=== PATIENT | female | born 1940 | race Caucasian/White ===

== ENCOUNTER → 2016-04-11 | Outpatient (CLI) | payer MEDICARE, OTHER ==
[~2016-04-11] MED LIST: AML5T PO; CALC500T87 PO; CYAN100023 PO; FOLI800T14 PO; METF-312 PO; POTACAP PO; PRE5T PO; [UNRECOGNIZED DRUG - CODE] PO
[2016-04-11 11:52] LABS: Basophils # (auto) 0.1 uL; Basophils % (auto) 0.9 % (0.0-2.0); Eosinophils # (auto) 0.2 uL; Eosinophils % (auto) 2.9 % (0.0-7.0); Lymphocytes # (auto) 2.6 uL; Lymphocytes % (auto) 46.2 % (10.0-50.0); Mean Corpuscular Hemoglobin 27.2 pg (28.0-32.0); Mean Corpuscular Hgb Conc. 32.4 g/dL (32.0-36.0); Mean Corpuscular Volume 83.9 fL (80.0-100.0); Mean Platelet Volume 9.3 fL (7.4-10.4); Monocytes # (auto) 0.5 uL; Monocytes % (auto) 8.9 % (0.0-12.0); Neutrophils # (auto) 2.3 uL; Neutrophils % (auto) 41.1 % (37.0-80.0); Platelet Count (auto) 306 10^3/uL (140-450); Red Cell Distribution Width 16.1 % (11.6-16.0); White Blood Cell 5.7 10^3/uL (4.4-10.8)
[2016-04-11 12:06] LABS: BUN/Creatinine Ratio 15.8; Bilirubin, Total 0.6 mg/dL (0.2-1.0); Calcium 9.4 mg/dL (8.5-10.1); Total Protein 7.6 g/dL (6.4-8.2)
== END | disposition home or self-care (01) ==
LOC: LAB 11:30
PROVIDERS: ATTEND Internal Medicine
DX: D46.9 Myelodysplastic syndrome, unspecified (principal)
CPT/HCPCS: 36415; 80053; 83615; 85025

== ENCOUNTER → 2016-05-19 | Outpatient (CLI) | payer MEDICARE, OTHER ==
[2016-05-19 10:30] LABS: Basophils # (auto) 0 uL; Basophils % (auto) 0.6 % (0.0-2.0); DEFINITIVE VIEW TRANSMISSION; Eosinophils # (auto) 0.2 uL; Eosinophils % (auto) 3.1 % (0.0-7.0); Hematocrit 30.8 % (36.0-46.0); Hemoglobin 9.6 g/dL (12.2-16.2); Lymphocytes # (auto) 2.4 uL; Lymphocytes % (auto) 36.1 % (10.0-50.0); Mean Corpuscular Hemoglobin 26.3 pg (28.0-32.0); Mean Corpuscular Hgb Conc. 31.3 g/dL (32.0-36.0); Mean Corpuscular Volume 84.1 fL (80.0-100.0); Mean Platelet Volume 9.6 fL (7.4-10.4); Monocytes # (auto) 0.6 uL; Monocytes % (auto) 9.3 % (0.0-12.0); Neutrophils # (auto) 3.4 uL; Neutrophils % (auto) 50.9 % (37.0-80.0); Platelet Count (auto) 396 10^3/uL (140-450); Red Cell Distribution Width 15.9 % (11.6-16.0); White Blood Cell 6.6 10^3/uL (4.4-10.8)
[2016-05-19 10:53] LABS: Albumin 3.3 g/dL (3.4-5.0); BUN/Creatinine Ratio 13.1; Bilirubin, Total 0.3 mg/dL (0.2-1.0); Calcium 8.7 mg/dL (8.5-10.1); Potassium 3.8 mmol/L (3.5-5.1)
== END | disposition home or self-care (01) ==
LOC: LAB 09:35
PROVIDERS: ATTEND Internal Medicine
DX: D46.9 Myelodysplastic syndrome, unspecified (principal)
CPT/HCPCS: 36415; 80053; 83615; 85025

== ENCOUNTER 2016-06-09 10:00 | Emergency (ER) | payer MEDICARE, OTHER ==
[~2016-06-09] VITALS: Ht 160 cm; Wt 101.2 kg
[2016-06-09 14:13] VITALS: BP 184/68
[2016-06-09] MEDS ORDERED: cloNIDine HCL 0.1 MG TAB PO ONE (15:30)
== END 2016-06-09 15:42 | disposition home or self-care (01) ==
LOC: ER 10:01
DX: I13.0 Hypertensive heart and chronic kidney disease with heart failure and stage 1 through stage 4 chronic kidney disease, or unspecified chronic kidney disease (principal); E11.22 Type 2 diabetes mellitus with diabetic chronic kidney disease; N18.9 Chronic kidney disease, unspecified; I50.9 Heart failure, unspecified; Z88.6 Allergy status to analgesic agent; Z88.0 Allergy status to penicillin; Z79.899 Other long term (current) drug therapy

== ENCOUNTER 2016-06-23 17:41 | Observation (INO) | payer MEDICARE, OTHER ==
[~2016-06-23] VITALS: Ht 157.5 cm; Wt 97.5 kg
[2016-06-23] MEDS ORDERED: ACETAMINOPHEN 500 MG TAB PO ONE ×2 (18:22→18:30)
[2016-06-23 19:47] LABS: Basophils # (auto) 0 uL; Basophils % (auto) 0.1 % (0.0-2.0); Eosinophils # (auto) 0.1 uL; Eosinophils % (auto) 0.6 % (0.0-7.0); Hematocrit 33.1 % (36.0-46.0); Lymphocytes # (auto) 0.4 uL; Lymphocytes % (auto) 4.7 % (10.0-50.0); Mean Corpuscular Hemoglobin 27.5 pg (28.0-32.0); Mean Corpuscular Hgb Conc. 33.3 g/dL (32.0-36.0); Mean Corpuscular Volume 82.5 fL (80.0-100.0); Mean Platelet Volume 9.9 fL (7.4-10.4); Monocytes # (auto) 1.3 uL; Monocytes % (auto) 13.4 % (0.0-12.0); Neutrophils # (auto) 7.6 uL; Neutrophils % (auto) 81.2 % (37.0-80.0); Platelet Count (auto) 266 10^3/uL (140-450); Red Cell Distribution Width 16.6 % (11.6-16.0); White Blood Cell 9.4 10^3/uL (4.4-10.8)
[2016-06-23 20:05] LABS: Albumin 3.7 g/dL (3.4-5.0); Calcium 8.9 mg/dL (8.5-10.1); Lactic Acid w/Reflex 7.3 mmol/L (0.4-2.0); Potassium 3.4 mmol/L (3.5-5.1)
[2016-06-23 20:23] LABS: Bilirubin, Total 0.4 mg/dL (0.2-1.0); Total Protein 7.5 g/dL (6.4-8.2)
[2016-06-23 20:32] LABS: REFLEX LACTIC ACID YES OR NO YES
[2016-06-23 22:09] LABS: Lactic Acid w/Reflex 3.7 mmol/L (0.4-2.0)
[2016-06-23 22:11] LABS: REFLEX LACTIC ACID YES OR NO NO
[2016-06-24 00:04] LABS: INR 1.03 (0.9-1.15); Prothrombin Time 10.6 sec (9.37-12.3)
[2016-06-24] MEDS ORDERED: LEVOFLOXACIN 500 MG TAB PO ONE (01:30)
[2016-06-24] MEDS ORDERED: ACETAMINOPHEN 500 MG TAB PO ONE (04:00)
[2016-06-24 04:31] LABS: Urine Bilirubin Negative (Negative); Urine Blood Negative /uL (Negative); Urine Color Yellow (Yellow); Urine Glucose Normal (Normal); Urine Hyaline Cast FEW /lpf (0 - 2); Urine Ketone Negative (Negative); Urine Mucus FEW (None Seen); Urine Nitrite Negative (Negative); Urine RBC 2 /hpf (0 - 4); Urine Urobilinogen Normal (Negative); Urine pH 7.5 (5.0-8.0)
[2016-06-24 05:30] VITALS: BP 97/52
== END 2016-06-24 06:07 | disposition home or self-care (01) | DRG 694 ==
LOC: ER 17:42 → OVERFLOW 17:43 → UNDOADMOB 17:43 → OVERFLOW 23:45 → ER 06-24 05:57 → UNDODISOB 06-24 06:07 → ER 06-24 06:07
PROVIDERS: ADMIT Emergency Medicine; ATTEND Emergency Medicine
DX: N20.0 Calculus of kidney (principal); J98.11 Atelectasis; K80.20 Calculus of gallbladder without cholecystitis without obstruction; I11.0 Hypertensive heart disease with heart failure; I50.9 Heart failure, unspecified; E11.9 Type 2 diabetes mellitus without complications; Z87.442 Personal history of urinary calculi
CPT/HCPCS: 36415; 74176; 80053; 81001; 83605; 85025; 85610; 85730; 87040; 93005; 99285; G0378

== ENCOUNTER → 2016-06-23 | Outpatient (CLI) | payer MEDICARE, OTHER ==
[2016-06-23 10:16] LABS: Albumin 3.6 g/dL (3.4-5.0); BUN/Creatinine Ratio 16.7; Bilirubin, Total 0.4 mg/dL (0.2-1.0); Potassium 3.7 mmol/L (3.5-5.1); Total Protein 7.3 g/dL (6.4-8.2)
[2016-06-23 10:31] LABS: Basophils # (auto) 0.1 uL; Basophils % (auto) 2.3 % (0.0-2.0); Eosinophils # (auto) 0.1 uL; Eosinophils % (auto) 1.3 % (0.0-7.0); Hematocrit 32.5 % (36.0-46.0); Hemoglobin 10.7 g/dL (12.2-16.2); Lymphocytes # (auto) 2.3 uL; Lymphocytes % (auto) 43.6 % (10.0-50.0); Mean Corpuscular Hemoglobin 27.1 pg (28.0-32.0); Mean Corpuscular Volume 82.1 fL (80.0-100.0); Mean Platelet Volume 10.4 fL (7.4-10.4); Monocytes # (auto) 0.5 uL; Monocytes % (auto) 9.5 % (0.0-12.0); Neutrophils # (auto) 2.3 uL; Neutrophils % (auto) 43.3 % (37.0-80.0); Platelet Count (auto) 264 10^3/uL (140-450); Red Cell Distribution Width 16.7 % (11.6-16.0); White Blood Cell 5.2 10^3/uL (4.4-10.8)
== END | disposition home or self-care (01) ==
LOC: LAB 09:40
PROVIDERS: ATTEND Internal Medicine
DX: D46.9 Myelodysplastic syndrome, unspecified (principal)
CPT/HCPCS: 36415; 80053; 83615; 85025

== ENCOUNTER → 2016-06-30 | Outpatient (CLI) | payer MEDICARE, OTHER ==
[2016-06-30 10:04] LABS: Basophils # (auto) 0 uL; Basophils % (auto) 0.6 % (0.0-2.0); Eosinophils # (auto) 0.1 uL; Eosinophils % (auto) 2.1 % (0.0-7.0); Hematocrit 32.1 % (36.0-46.0); Hemoglobin 10.9 g/dL (12.2-16.2); Lymphocytes # (auto) 2.4 uL; Lymphocytes % (auto) 40.9 % (10.0-50.0); Mean Corpuscular Hemoglobin 27.4 pg (28.0-32.0); Mean Corpuscular Hgb Conc. 33.9 g/dL (32.0-36.0); Monocytes # (auto) 0.4 uL; Monocytes % (auto) 7.4 % (0.0-12.0); Neutrophils # (auto) 2.8 uL; Platelet Count (auto) 218 10^3/uL (140-450); Red Cell Distribution Width 16.9 % (11.6-16.0); SUSPECT VIEW TRANSMISSION; White Blood Cell 5.8 10^3/uL (4.4-10.8)
[2016-06-30 11:06] LABS: Platelet Estimate Adequate
[2016-06-30 11:07] LABS: RBC Morphology Normal
== END | disposition home or self-care (01) ==
LOC: LAB 09:22
PROVIDERS: ATTEND Internal Medicine
DX: D46.9 Myelodysplastic syndrome, unspecified (principal)
CPT/HCPCS: 36415; 85025

== ENCOUNTER → 2016-08-04 | Outpatient (CLI) | payer MEDICARE, OTHER ==
[2016-08-04 10:13] LABS: Basophils # (auto) 0.1 uL; Basophils % (auto) 1.8 % (0.0-2.0); DEFINITIVE VIEW TRANSMISSION; Eosinophils # (auto) 0.1 uL; Eosinophils % (auto) 1.5 % (0.0-7.0); Hemoglobin 10.5 g/dL (12.2-16.2); Lymphocytes # (auto) 2.2 uL; Lymphocytes % (auto) 48.8 % (10.0-50.0); Mean Corpuscular Volume 81.8 fL (80.0-100.0); Mean Platelet Volume 9.7 fL (7.4-10.4); Monocytes # (auto) 0.4 uL; Neutrophils # (auto) 1.8 uL; Neutrophils % (auto) 38.9 % (37.0-80.0); Platelet Count (auto) 322 10^3/uL (140-450); Red Cell Distribution Width 17.8 % (11.6-16.0); White Blood Cell 4.6 10^3/uL (4.4-10.8)
[2016-08-04 10:32] LABS: Albumin 3.4 g/dL (3.4-5.0); BUN/Creatinine Ratio 18.8; Bilirubin, Total 0.5 mg/dL (0.2-1.0); Calcium 8.6 mg/dL (8.5-10.1); Potassium 3.5 mmol/L (3.5-5.1); Total Protein 6.9 g/dL (6.4-8.2)
== END | disposition home or self-care (01) ==
LOC: LAB 09:41
PROVIDERS: ATTEND Internal Medicine
DX: D46.9 Myelodysplastic syndrome, unspecified (principal)
CPT/HCPCS: 36415; 80053; 83615; 85025

== ENCOUNTER → 2016-09-08 | Outpatient (CLI) | payer MEDICARE, OTHER ==
[~2016-09-08] MED LIST changes: -METF-312 PO; +METF-370 PO
[2016-09-08 10:17] LABS: Basophils # (auto) 0 uL; Basophils % (auto) 0.5 % (0.0-2.0); Eosinophils # (auto) 0.1 uL; Eosinophils % (auto) 1.1 % (0.0-7.0); Hematocrit 30.7 % (36.0-46.0); Hemoglobin 10.2 g/dL (12.2-16.2); Lymphocytes # (auto) 2.1 uL; Lymphocytes % (auto) 44.3 % (10.0-50.0); Mean Corpuscular Hgb Conc. 33.4 g/dL (32.0-36.0); Mean Corpuscular Volume 80.9 fL (80.0-100.0); Mean Platelet Volume 10.8 fL (7.4-10.4); Monocytes # (auto) 0.5 uL; Monocytes % (auto) 10.4 % (0.0-12.0); Neutrophils # (auto) 2.1 uL; Neutrophils % (auto) 43.7 % (37.0-80.0); Platelet Count (auto) 234 10^3/uL (140-450); Red Cell Distribution Width 17.3 % (11.6-16.0); White Blood Cell 4.7 10^3/uL (4.4-10.8)
[2016-09-08 10:20] LABS: Albumin 3.5 g/dL (3.4-5.0); BUN/Creatinine Ratio 21.2; Calcium 8.5 mg/dL (8.5-10.1); Potassium 3.7 mmol/L (3.5-5.1)
[2016-09-08 10:23] LABS: Bilirubin, Total 0.4 mg/dL (0.2-1.0); Total Protein 7.1 g/dL (6.4-8.2)
== END | disposition home or self-care (01) ==
LOC: LAB 09:43
PROVIDERS: ATTEND Internal Medicine
DX: D46.9 Myelodysplastic syndrome, unspecified (principal)
CPT/HCPCS: 36415; 80053; 83615; 85025

== ENCOUNTER → 2016-10-13 | Outpatient (CLI) | payer MEDICARE ==
[2016-10-13 10:23] LABS: Basophils # (auto) 0 uL; Basophils % (auto) 0.9 % (0.0-2.0); CONDITION Y; Eosinophils # (auto) 0.1 uL; Eosinophils % (auto) 1.8 % (0.0-7.0); Hematocrit 30.9 % (36.0-46.0); Hemoglobin 10.4 g/dL (12.2-16.2); Lymphocytes # (auto) 1.9 uL; Lymphocytes % (auto) 41.9 % (10.0-50.0); Mean Corpuscular Hemoglobin 27.6 pg (28.0-32.0); Mean Corpuscular Hgb Conc. 33.6 g/dL (32.0-36.0); Mean Corpuscular Volume 82.1 fL (80.0-100.0); Mean Platelet Volume 9.6 fL (7.4-10.4); Monocytes # (auto) 0.4 uL; Monocytes % (auto) 9.7 % (0.0-12.0); Neutrophils % (auto) 45.7 % (37.0-80.0); Platelet Count (auto) 206 10^3/uL (140-450); Red Cell Distribution Width 17.8 % (11.6-16.0); SUSPECT SEE PRINTOUT; White Blood Cell 4.5 10^3/uL (4.4-10.8)
[2016-10-13 11:04] LABS: Albumin 3.5 g/dL (3.4-5.0); BUN/Creatinine Ratio 19.3; Bilirubin, Total 0.4 mg/dL (0.2-1.0); Calcium 8.9 mg/dL (8.5-10.1); Potassium 3.8 mmol/L (3.5-5.1); Total Protein 6.8 g/dL (6.4-8.2)
== END | disposition home or self-care (01) ==
LOC: LAB 10:09
PROVIDERS: ATTEND Internal Medicine
DX: D46.9 Myelodysplastic syndrome, unspecified (principal)
CPT/HCPCS: 36415; 80053; 85025

== ENCOUNTER → 2016-11-17 | Outpatient (CLI) | payer MEDICARE, BC ==
[2016-11-17 10:11] LABS: Basophils # (auto) 0 uL; Basophils % (auto) 0.8 % (0.0-2.0); CONDITION Y; Eosinophils # (auto) 0.1 uL; Eosinophils % (auto) 2.1 % (0.0-7.0); Hematocrit 31.4 % (36.0-46.0); Hemoglobin 10.7 g/dL (12.2-16.2); Lymphocytes # (auto) 1.7 uL; Lymphocytes % (auto) 41.8 % (10.0-50.0); Mean Corpuscular Hgb Conc. 34.1 g/dL (32.0-36.0); Mean Corpuscular Volume 82.1 fL (80.0-100.0); Mean Platelet Volume 9.9 fL (7.4-10.4); Monocytes # (auto) 0.4 uL; Monocytes % (auto) 9.6 % (0.0-12.0); Neutrophils # (auto) 1.9 uL; Neutrophils % (auto) 45.7 % (37.0-80.0); Platelet Count (auto) 110 10^3/uL (140-450); Red Cell Distribution Width 17.8 % (11.6-16.0); SUSPECT SEE PRINTOUT; White Blood Cell 4.1 10^3/uL (4.4-10.8)
[2016-11-17 17:38] LABS: Potassium 3.8 mmol/L (3.5-5.1)
[2016-11-17 17:56] LABS: Albumin 3.7 g/dL (3.4-5.0); Bilirubin, Total 0.4 mg/dL (0.2-1.0); Calcium 8.8 mg/dL (8.5-10.1); Total Protein 7.2 g/dL (6.4-8.2)
== END | disposition home or self-care (01) ==
LOC: LAB 09:43
PROVIDERS: ATTEND Internal Medicine
DX: D46.9 Myelodysplastic syndrome, unspecified (principal); I11.0 Hypertensive heart disease with heart failure; I50.9 Heart failure, unspecified; E11.9 Type 2 diabetes mellitus without complications
CPT/HCPCS: 36415; 80053; 83615; 85025

== ENCOUNTER → 2016-12-09 | Outpatient (CLI) | payer MEDICARE, BC ==
[2016-12-09 13:39] LABS: Basophils # (auto) 0 uL; Basophils % (auto) 0.4 % (0.0-2.0); CONDITION Y; Eosinophils # (auto) 0 uL; Eosinophils % (auto) 0.3 % (0.0-7.0); Hemoglobin 11.3 g/dL (12.2-16.2); Lymphocytes # (auto) 1.2 uL; Lymphocytes % (auto) 20.7 % (10.0-50.0); Mean Corpuscular Hgb Conc. 33.3 g/dL (32.0-36.0); Mean Platelet Volume 10.5 fL (7.4-10.4); Monocytes # (auto) 0.4 uL; Monocytes % (auto) 6.9 % (0.0-12.0); Neutrophils # (auto) 4.3 uL; Neutrophils % (auto) 71.7 % (37.0-80.0); Platelet Count (auto) 66 10^3/uL (140-450)
[2016-12-09 14:01] LABS: Albumin 3.9 g/dL (3.4-5.0); BUN/Creatinine Ratio 18.3; Bilirubin, Total 0.5 mg/dL (0.2-1.0); Calcium 9.2 mg/dL (8.5-10.1); Potassium 4.2 mmol/L (3.5-5.1); Total Protein 7.8 g/dL (6.4-8.2)
== END ==
LOC: LAB 12:56
PROVIDERS: ATTEND Internal Medicine
DX: D46.9 Myelodysplastic syndrome, unspecified (principal); I13.0 Hypertensive heart and chronic kidney disease with heart failure and stage 1 through stage 4 chronic kidney disease, or unspecified chronic kidney disease; I15.9 Secondary hypertension, unspecified; N18.9 Chronic kidney disease, unspecified; E11.9 Type 2 diabetes mellitus without complications
CPT/HCPCS: 36415; 80053; 83615; 85025

== ENCOUNTER → 2016-12-15 | Outpatient (CLI) | payer MEDICARE, OTHER ==
[2016-12-15 09:36] LABS: Basophils # (auto) 0 uL; Basophils % (auto) 0.2 % (0.0-2.0); CONDITION Y; Eosinophils # (auto) 0 uL; Eosinophils % (auto) 0.3 % (0.0-7.0); Hemoglobin 11.2 g/dL (12.2-16.2); Lymphocytes # (auto) 1.7 uL; Lymphocytes % (auto) 19.7 % (10.0-50.0); Mean Corpuscular Hemoglobin 28.1 pg (28.0-32.0); Mean Corpuscular Hgb Conc. 33.9 g/dL (32.0-36.0); Mean Corpuscular Volume 82.9 fL (80.0-100.0); Mean Platelet Volume 10.8 fL (7.4-10.4); Monocytes # (auto) 0.3 uL; Monocytes % (auto) 3.9 % (0.0-12.0); Neutrophils # (auto) 6.4 uL; Neutrophils % (auto) 75.9 % (37.0-80.0); Platelet Count (auto) 225 10^3/uL (140-450); Red Cell Distribution Width 18.3 % (11.6-16.0); White Blood Cell 8.4 10^3/uL (4.4-10.8)
== END | disposition home or self-care (01) ==
LOC: LAB 09:24
PROVIDERS: ATTEND Internal Medicine
DX: D64.9 Anemia, unspecified (principal); I13.0 Hypertensive heart and chronic kidney disease with heart failure and stage 1 through stage 4 chronic kidney disease, or unspecified chronic kidney disease; I50.9 Heart failure, unspecified; N18.9 Chronic kidney disease, unspecified
CPT/HCPCS: 36415; 85025

== ENCOUNTER → 2016-12-18 | Outpatient (CLI) | payer MEDICARE, OTHER ==
[2016-12-18 09:32] LABS: Hematocrit 34.1 % (36.0-46.0); Hemoglobin 11.3 g/dL (12.2-16.2); Mean Corpuscular Hemoglobin 27.7 pg (28.0-32.0); Mean Corpuscular Hgb Conc. 33.1 g/dL (32.0-36.0); Mean Corpuscular Volume 83.9 fL (80.0-100.0); Mean Platelet Volume 9.9 fL (6.9-10.8); Platelet Count (auto) 199 10^3/uL (140-450); Red Cell Distribution Width 17.5 % (11.8-14.3); White Blood Cell 8.7 10^3/uL (4.4-10.8)
[2016-12-18 09:39] LABS: Metamyelocytes % 0; Myelocytes % 0; Promyelocytes % 0; Reactive Lymphocytes 0
[2016-12-18 10:04] LABS: Anisocytosis Slight; Burr Cells FEW; Ovalocytes FEW; Platelet Estimate Adequate; Tear Drop Cells FEW
== END | disposition home or self-care (01) ==
LOC: LAB 09:14
PROVIDERS: ATTEND Internal Medicine
DX: D46.9 Myelodysplastic syndrome, unspecified (principal); I13.0 Hypertensive heart and chronic kidney disease with heart failure and stage 1 through stage 4 chronic kidney disease, or unspecified chronic kidney disease; I50.9 Heart failure, unspecified; N18.9 Chronic kidney disease, unspecified; E11.9 Type 2 diabetes mellitus without complications
CPT/HCPCS: 36415; 85007; 85027

== ENCOUNTER → 2016-12-24 | Outpatient (CLI) | payer MEDICARE, OTHER ==
[2016-12-24 14:43] LABS: Basophils # (auto) 0 uL; Basophils % (auto) 0.2 % (0.0-2.0); Eosinophils # (auto) 0 uL; Eosinophils % (auto) 0.2 % (0.0-7.0); Hematocrit 36.9 % (36.0-46.0); Lymphocytes # (auto) 1.9 uL; Lymphocytes % (auto) 13.1 % (10.0-50.0); Mean Corpuscular Hemoglobin 27.5 pg (28.0-32.0); Mean Corpuscular Hgb Conc. 32.6 g/dL (32.0-36.0); Mean Corpuscular Volume 84.4 fL (80.0-100.0); Mean Platelet Volume 10.1 fL (6.9-10.8); Monocytes # (auto) 0.6 uL; Monocytes % (auto) 4.1 % (0.0-12.0); Neutrophils % (auto) 82.4 % (37.0-80.0); Nucleated Red Blood Cells % 0.2 %; Platelet Count (auto) 252 10^3/uL (140-450); Red Cell Distribution Width 18.2 % (11.8-14.3); White Blood Cell 14.6 10^3/uL (4.4-10.8)
== END | disposition home or self-care (01) ==
LOC: LAB 14:28
PROVIDERS: ATTEND Internal Medicine
DX: D46.9 Myelodysplastic syndrome, unspecified (principal); I13.0 Hypertensive heart and chronic kidney disease with heart failure and stage 1 through stage 4 chronic kidney disease, or unspecified chronic kidney disease; I50.9 Heart failure, unspecified; N18.9 Chronic kidney disease, unspecified; E11.9 Type 2 diabetes mellitus without complications
CPT/HCPCS: 36415; 85025

== ENCOUNTER → 2017-01-19 | Outpatient (CLI) | payer MEDICARE, OTHER ==
[2017-01-19 12:11] LABS: Hematocrit 34.5 % (36.0-46.0); Hemoglobin 11.4 g/dL (12.2-16.2); Mean Corpuscular Hemoglobin 28.1 pg (28.0-32.0); Mean Corpuscular Hgb Conc. 32.9 g/dL (32.0-36.0); Mean Corpuscular Volume 85.5 fL (80.0-100.0); Mean Platelet Volume 9.5 fL (6.9-10.8); Platelet Count (auto) 161 10^3/uL (140-450); Red Cell Distribution Width 18.9 % (11.8-14.3); White Blood Cell 14.3 10^3/uL (4.4-10.8)
[2017-01-19 12:51] LABS: Metamyelocytes % 0; Myelocytes % 0; Promyelocytes % 0
[2017-01-19 12:55] LABS: Albumin 3.5 g/dL (3.4-5.0); BUN/Creatinine Ratio 38.8; Bilirubin, Total 0.6 mg/dL (0.2-1.0); Calcium 8.5 mg/dL (8.5-10.1)
[2017-01-19 14:39] LABS: Reactive Lymphocytes 3
[2017-01-19 14:40] LABS: Platelet Estimate Adequate
== END | disposition home or self-care (01) ==
LOC: LAB 09:22
PROVIDERS: ATTEND Internal Medicine
DX: D46.9 Myelodysplastic syndrome, unspecified (principal)
CPT/HCPCS: 36415; 80053; 83615; 85007; 85027

== ENCOUNTER → 2017-03-02 | Outpatient (CLI) | payer MEDICARE, OTHER ==
[2017-03-02 09:24] LABS: Hematocrit 30.7 % (36.0-46.0); Hemoglobin 10.3 g/dL (12.2-16.2); Mean Corpuscular Hemoglobin 29.3 pg (28.0-32.0); Mean Corpuscular Hgb Conc. 33.7 g/dL (32.0-36.0); Mean Corpuscular Volume 87.2 fL (80.0-100.0); Mean Platelet Volume 9.1 fL (6.9-10.8); Platelet Count (auto) 147 10^3/uL (140-450); Red Cell Distribution Width 18.9 % (11.8-14.3); White Blood Cell 12.4 10^3/uL (4.4-10.8)
[2017-03-02 09:31] LABS: Metamyelocytes % 0; Myelocytes % 0; Promyelocytes % 0; Reactive Lymphocytes 0
[2017-03-02 10:05] LABS: Albumin 3.7 g/dL (3.4-5.0); BUN/Creatinine Ratio 27.7; Bilirubin, Total 0.5 mg/dL (0.2-1.0); Calcium 8.5 mg/dL (8.5-10.1); Potassium 4.1 mmol/L (3.5-5.1)
[2017-03-02 10:35] LABS: Large Platelets FEW; Platelet Estimate Adequate
== END | disposition home or self-care (01) ==
LOC: LAB 09:11
PROVIDERS: ATTEND Internal Medicine
DX: D46.9 Myelodysplastic syndrome, unspecified (principal)
CPT/HCPCS: 36415; 80053; 83615; 85007; 85027

== ENCOUNTER → 2017-03-16 | Outpatient (CLI) | payer MEDICARE, OTHER ==
[2017-03-16 10:01] LABS: Basophils # (auto) 0 uL; Basophils % (auto) 0.5 % (0.0-2.0); Eosinophils # (auto) 0 uL; Eosinophils % (auto) 0.1 % (0.0-7.0); Hematocrit 31.5 % (36.0-46.0); Hemoglobin 10.4 g/dL (12.2-16.2); Lymphocytes # (auto) 2.3 uL; Lymphocytes % (auto) 28.9 % (10.0-50.0); Mean Corpuscular Hemoglobin 29.7 pg (28.0-32.0); Mean Corpuscular Volume 89.8 fL (80.0-100.0); Mean Platelet Volume 9.5 fL (6.9-10.8); Monocytes % (auto) 12.2 % (0.0-12.0); Neutrophils # (auto) 4.5 uL; Neutrophils % (auto) 58.3 % (37.0-80.0); Nucleated Red Blood Cells % 0.1 %; Platelet Count (auto) 98 10^3/uL (140-450); Red Cell Distribution Width 19.4 % (11.8-14.3); White Blood Cell 7.8 10^3/uL (4.4-10.8)
== END | disposition home or self-care (01) ==
LOC: LAB 09:19
PROVIDERS: ATTEND Internal Medicine
DX: D46.9 Myelodysplastic syndrome, unspecified (principal)
CPT/HCPCS: 36415; 85025

== ENCOUNTER → 2017-04-07 | Outpatient (CLI) | payer MEDICARE, OTHER ==
[2017-04-07 09:57] LABS: Basophils # (auto) 0.1 uL; Basophils % (auto) 0.8 % (0.0-2.0); Eosinophils # (auto) 0.1 uL; Eosinophils % (auto) 0.6 % (0.0-7.0); Hematocrit 30.3 % (36.0-46.0); Hemoglobin 9.8 g/dL (12.2-16.2); Lymphocytes # (auto) 2.6 uL; Lymphocytes % (auto) 31.6 % (10.0-50.0); Mean Corpuscular Hemoglobin 28.7 pg (28.0-32.0); Mean Corpuscular Hgb Conc. 32.3 g/dL (32.0-36.0); Mean Corpuscular Volume 88.9 fL (80.0-100.0); Monocytes # (auto) 0.7 uL; Monocytes % (auto) 7.9 % (0.0-12.0); Neutrophils # (auto) 4.9 uL; Neutrophils % (auto) 59.1 % (37.0-80.0); Nucleated Red Blood Cells % 0.2 %; Platelet Count (auto) 309 10^3/uL (140-450); Red Blood Cells 3.42 10^6/uL (4.0-5.20); Red Cell Distribution Width 18.1 % (11.8-14.3); White Blood Cell 8.3 10^3/uL (4.4-10.8)
== END | disposition home or self-care (01) ==
LOC: LAB 09:32
PROVIDERS: ATTEND Internal Medicine
DX: D46.9 Myelodysplastic syndrome, unspecified (principal)
CPT/HCPCS: 36415; 85025

== ENCOUNTER → 2017-04-13 | Outpatient (CLI) | payer MEDICARE, OTHER ==
[2017-04-13 10:23] LABS: Basophils # (auto) 0 uL; Basophils % (auto) 0.5 % (0.0-2.0); Eosinophils # (auto) 0 uL; Eosinophils % (auto) 0.4 % (0.0-7.0); Hematocrit 29.7 % (36.0-46.0); Hemoglobin 9.8 g/dL (12.2-16.2); Lymphocytes # (auto) 3.2 uL; Lymphocytes % (auto) 35.5 % (10.0-50.0); Mean Corpuscular Hemoglobin 28.8 pg (28.0-32.0); Mean Corpuscular Hgb Conc. 32.9 g/dL (32.0-36.0); Mean Corpuscular Volume 87.6 fL (80.0-100.0); Monocytes # (auto) 0.9 uL; Monocytes % (auto) 10.2 % (0.0-12.0); Neutrophils # (auto) 4.8 uL; Neutrophils % (auto) 53.4 % (37.0-80.0); Nucleated Red Blood Cells % 0.2 %; Platelet Count (auto) 234 10^3/uL (140-450); Red Blood Cells 3.39 10^6/uL (4.0-5.20); Red Cell Distribution Width 17.5 % (11.8-14.3)
== END | disposition home or self-care (01) ==
LOC: LAB 10:02
PROVIDERS: ATTEND Internal Medicine
DX: D46.9 Myelodysplastic syndrome, unspecified (principal)
CPT/HCPCS: 36415; 85025

== ENCOUNTER → 2017-05-11 | Outpatient (CLI) | payer MEDICARE, OTHER ==
[2017-05-11 09:44] LABS: Basophils # (auto) 0 uL; Basophils % (auto) 0.6 % (0.0-2.0); Eosinophils # (auto) 0 uL; Eosinophils % (auto) 0.8 % (0.0-7.0); Hematocrit 33.3 % (36.0-46.0); Hemoglobin 10.9 g/dL (12.2-16.2); Lymphocytes # (auto) 2.3 uL; Mean Corpuscular Hemoglobin 28.7 pg (28.0-32.0); Mean Corpuscular Hgb Conc. 32.9 g/dL (32.0-36.0); Mean Corpuscular Volume 87.3 fL (80.0-100.0); Monocytes # (auto) 0.5 uL; Monocytes % (auto) 7.7 % (0.0-12.0); Neutrophils # (auto) 3.6 uL; Neutrophils % (auto) 54.9 % (37.0-80.0); Nucleated Red Blood Cells % 0.3 %; Platelet Count (auto) 194 10^3/uL (140-450); Red Blood Cells 3.81 10^6/uL (4.0-5.20); Red Cell Distribution Width 17.3 % (11.8-14.3); White Blood Cell 6.5 10^3/uL (4.4-10.8)
[2017-05-11 10:31] LABS: Albumin 3.6 g/dL (3.4-5.0); Calcium 8.9 mg/dL (8.5-10.1); Potassium 3.7 mmol/L (3.5-5.1)
[2017-05-11 10:39] LABS: Bilirubin, Total 0.4 mg/dL (0.2-1.0); Total Protein 6.9 g/dL (6.4-8.2)
[2017-05-11 11:15] LABS: BUN/Creatinine Ratio 27.6
== END | disposition home or self-care (01) ==
LOC: LAB 09:29
PROVIDERS: ATTEND Internal Medicine
DX: D46.9 Myelodysplastic syndrome, unspecified (principal)
CPT/HCPCS: 36415; 80053; 83615; 85025

== ENCOUNTER → 2017-06-15 | Outpatient (CLI) | payer MEDICARE, OTHER ==
[2017-06-15 10:16] LABS: Basophils # (auto) 0.1 uL; Basophils % (auto) 0.7 % (0.0-2.0); Eosinophils # (auto) 0.1 uL; Hematocrit 34.1 % (36.0-46.0); Hemoglobin 10.9 g/dL (12.2-16.2); Lymphocytes # (auto) 2.4 uL; Lymphocytes % (auto) 35.3 % (10.0-50.0); Mean Corpuscular Hemoglobin 27.5 pg (28.0-32.0); Mean Corpuscular Hgb Conc. 31.9 g/dL (32.0-36.0); Mean Corpuscular Volume 86.2 fL (80.0-100.0); Monocytes # (auto) 0.6 uL; Neutrophils # (auto) 3.7 uL; Nucleated Red Blood Cells % 0.1 %; Platelet Count (auto) 281 10^3/uL (140-450); Red Blood Cells 3.96 10^6/uL (4.0-5.20); Red Cell Distribution Width 17.7 % (11.8-14.3); White Blood Cell 6.9 10^3/uL (4.4-10.8)
[2017-06-15 10:38] LABS: Albumin 3.5 g/dL (3.4-5.0); BUN/Creatinine Ratio 19.6; Bilirubin, Total 0.3 mg/dL (0.2-1.0); Calcium 8.7 mg/dL (8.5-10.1); Potassium 3.7 mmol/L (3.5-5.1); Total Protein 7.3 g/dL (6.4-8.2)
== END | disposition home or self-care (01) ==
LOC: LAB 09:59
PROVIDERS: ATTEND Internal Medicine
DX: D46.9 Myelodysplastic syndrome, unspecified (principal)
CPT/HCPCS: 36415; 80053; 83615; 85025

== ENCOUNTER → 2017-07-20 | Outpatient (CLI) | payer MEDICARE, OTHER ==
[2017-07-20 11:06] LABS: Albumin 3.5 g/dL (3.4-5.0); BUN/Creatinine Ratio 23.6; Bilirubin, Total 0.3 mg/dL (0.2-1.0); Calcium 8.5 mg/dL (8.5-10.1); Potassium 3.7 mmol/L (3.5-5.1); Total Protein 7.2 g/dL (6.4-8.2)
[2017-07-20 11:08] LABS: Basophils # (auto) 0.1 uL; Eosinophils # (auto) 0.1 uL; Hematocrit 33.5 % (36.0-46.0); Hemoglobin 10.9 g/dL (12.2-16.2); Lymphocytes # (auto) 2.1 uL; Lymphocytes % (auto) 29.7 % (10.0-50.0); Mean Corpuscular Hemoglobin 27.6 pg (28.0-32.0); Mean Corpuscular Hgb Conc. 32.6 g/dL (32.0-36.0); Mean Corpuscular Volume 84.6 fL (80.0-100.0); Monocytes # (auto) 0.6 uL; Neutrophils # (auto) 4.2 uL; Neutrophils % (auto) 59.3 % (37.0-80.0); Nucleated Red Blood Cells % 0.1 %; Platelet Count (auto) 188 10^3/uL (140-450); Red Blood Cells 3.96 10^6/uL (4.0-5.20); Red Cell Distribution Width 17.3 % (11.8-14.3); White Blood Cell 7.1 10^3/uL (4.4-10.8)
== END | disposition home or self-care (01) ==
LOC: LAB 10:35
PROVIDERS: ATTEND Internal Medicine
DX: D46.9 Myelodysplastic syndrome, unspecified (principal); E11.22 Type 2 diabetes mellitus with diabetic chronic kidney disease; I12.9 Hypertensive chronic kidney disease with stage 1 through stage 4 chronic kidney disease, or unspecified chronic kidney disease; N18.3 Chronic kidney disease, stage 3 (moderate)
CPT/HCPCS: 36415; 80053; 83615; 85025

== ENCOUNTER → 2017-08-24 | Outpatient (CLI) | payer MEDICARE, OTHER ==
[2017-08-24 10:20] LABS: Basophils # (auto) 0.1 uL; Eosinophils # (auto) 0.1 uL; Eosinophils % (auto) 0.9 % (0.0-7.0); Hemoglobin 10.8 g/dL (12.2-16.2); Lymphocytes # (auto) 2.5 uL; Lymphocytes % (auto) 35.6 % (10.0-50.0); Mean Corpuscular Hemoglobin 27.6 pg (28.0-32.0); Mean Corpuscular Hgb Conc. 32.8 g/dL (32.0-36.0); Mean Corpuscular Volume 84.1 fL (80.0-100.0); Monocytes # (auto) 0.6 uL; Monocytes % (auto) 8.6 % (0.0-12.0); Neutrophils # (auto) 3.8 uL; Neutrophils % (auto) 53.9 % (37.0-80.0); Nucleated Red Blood Cells % 0.1 %; Platelet Count (auto) 207 10^3/uL (140-450); Red Blood Cells 3.92 10^6/uL (4.0-5.20); Red Cell Distribution Width 17.2 % (11.8-14.3)
[2017-08-24 10:42] LABS: Albumin 3.6 g/dL (3.4-5.0); BUN/Creatinine Ratio 17.2; Bilirubin, Total 0.3 mg/dL (0.2-1.0); Calcium 8.9 mg/dL (8.5-10.1); Potassium 3.5 mmol/L (3.5-5.1); Total Protein 7.1 g/dL (6.4-8.2)
== END | disposition home or self-care (01) ==
LOC: LAB 10:06
PROVIDERS: ATTEND Internal Medicine
DX: D46.9 Myelodysplastic syndrome, unspecified (principal); E09.9 Drug or chemical induced diabetes mellitus without complications; E78.00 Pure hypercholesterolemia, unspecified; I12.9 Hypertensive chronic kidney disease with stage 1 through stage 4 chronic kidney disease, or unspecified chronic kidney disease; N18.3 Chronic kidney disease, stage 3 (moderate)
CPT/HCPCS: 36415; 80053; 80061; 83036; 83615; 84439; 84443; 85025

== ENCOUNTER → 2017-09-24 | Outpatient (CLI) | payer MEDICARE, OTHER ==
[2017-09-24 10:11] LABS: Basophils # (auto) 0.1 uL; Basophils % (auto) 1.1 % (0.0-2.0); Eosinophils # (auto) 0 uL; Eosinophils % (auto) 0.5 % (0.0-7.0); Hematocrit 33.4 % (36.0-46.0); Hemoglobin 10.9 g/dL (12.2-16.2); Lymphocytes # (auto) 2.2 uL; Lymphocytes % (auto) 47.3 % (10.0-50.0); Mean Corpuscular Hemoglobin 27.3 pg (28.0-32.0); Mean Corpuscular Hgb Conc. 32.7 g/dL (32.0-36.0); Mean Corpuscular Volume 83.6 fL (80.0-100.0); Monocytes # (auto) 0.3 uL; Monocytes % (auto) 7.5 % (0.0-12.0); Neutrophils % (auto) 43.6 % (37.0-80.0); Nucleated Red Blood Cells % 0.2 %; Platelet Count (auto) 148 10^3/uL (140-450); Red Blood Cells 3.99 10^6/uL (4.0-5.20); Red Cell Distribution Width 17.2 % (11.8-14.3); White Blood Cell 4.6 10^3/uL (4.4-10.8)
[2017-09-24 10:36] LABS: Free T4 (Free Thyroxine) 1.15 ng/dL (0.89-1.76)
== END | disposition home or self-care (01) ==
LOC: LAB 09:54
PROVIDERS: ATTEND Internal Medicine
DX: I12.9 Hypertensive chronic kidney disease with stage 1 through stage 4 chronic kidney disease, or unspecified chronic kidney disease (principal); E11.22 Type 2 diabetes mellitus with diabetic chronic kidney disease; N18.2 Chronic kidney disease, stage 2 (mild); E03.9 Hypothyroidism, unspecified; M25.50 Pain in unspecified joint; D63.1 Anemia in chronic kidney disease
CPT/HCPCS: 36415; 82607; 83540; 84439; 84443; 84550; 85025

== ENCOUNTER → 2017-11-26 | Outpatient (CLI) | payer MEDICARE, OTHER ==
[2017-11-26 10:42] LABS: Basophils # (auto) 0.1 uL; Basophils % (auto) 1.7 % (0.0-2.0); Eosinophils # (auto) 0 uL; Eosinophils % (auto) 0.2 % (0.0-7.0); Hematocrit 30.5 % (36.0-46.0); Hemoglobin 10.2 g/dL (12.2-16.2); Lymphocytes # (auto) 1.7 uL; Lymphocytes % (auto) 21.7 % (10.0-50.0); Mean Corpuscular Hemoglobin 27.8 pg (28.0-32.0); Mean Corpuscular Hgb Conc. 33.4 g/dL (32.0-36.0); Mean Corpuscular Volume 83.2 fL (80.0-100.0); Neutrophils % (auto) 63.4 % (37.0-80.0); Nucleated Red Blood Cells % 0.1 %; Platelet Count (auto) 126 10^3/uL (140-450); Red Blood Cells 3.67 10^6/uL (4.0-5.20); Red Cell Distribution Width 16.7 % (11.8-14.3); White Blood Cell 7.9 10^3/uL (4.4-10.8)
[2017-11-26 11:15] LABS: Potassium 3.9 mmol/L (3.5-5.1)
[2017-11-26 11:16] LABS: BUN/Creatinine Ratio 22.3; Bilirubin, Total 0.4 mg/dL (0.2-1.0); Calcium 8.5 mg/dL (8.5-10.1)
[2017-11-26 11:17] LABS: Albumin 3.5 g/dL (3.4-5.0)
== END | disposition home or self-care (01) ==
LOC: LAB 10:28
PROVIDERS: ATTEND Internal Medicine
DX: D46.9 Myelodysplastic syndrome, unspecified (principal); Z88.1 Allergy status to other antibiotic agents
CPT/HCPCS: 36415; 80053; 83615; 85025

== ENCOUNTER → 2017-12-15 | Outpatient (CLI) | payer MEDICARE, OTHER ==
[2017-12-15 12:16] LABS: Basophils # (auto) 0.1 uL; Basophils % (auto) 1.7 % (0.0-2.0); Eosinophils # (auto) 0 uL; Eosinophils % (auto) 0.1 % (0.0-7.0); Hematocrit 31.9 % (36.0-46.0); Hemoglobin 10.8 g/dL (12.2-16.2); Lymphocytes # (auto) 2.6 uL; Lymphocytes % (auto) 36.2 % (10.0-50.0); Mean Corpuscular Hemoglobin 28.2 pg (28.0-32.0); Mean Corpuscular Hgb Conc. 33.7 g/dL (32.0-36.0); Mean Corpuscular Volume 83.6 fL (80.0-100.0); Monocytes # (auto) 1.3 uL; Monocytes % (auto) 17.4 % (0.0-12.0); Neutrophils # (auto) 3.2 uL; Neutrophils % (auto) 44.6 % (37.0-80.0); Nucleated Red Blood Cells % 0.2 %; Platelet Count (auto) 137 10^3/uL (140-450); Red Blood Cells 3.82 10^6/uL (4.0-5.20); Red Cell Distribution Width 16.4 % (11.8-14.3); White Blood Cell 7.2 10^3/uL (4.4-10.8)
[2017-12-15 12:49] LABS: Albumin 3.6 g/dL (3.4-5.0); BUN/Creatinine Ratio 17.4; Bilirubin, Total 0.5 mg/dL (0.2-1.0); Calcium 8.5 mg/dL (8.5-10.1); Potassium 3.8 mmol/L (3.5-5.1); Total Protein 7.3 g/dL (6.4-8.2)
== END | disposition home or self-care (01) ==
LOC: LAB 11:37
PROVIDERS: ATTEND Internal Medicine
DX: D46.9 Myelodysplastic syndrome, unspecified (principal); I13.0 Hypertensive heart and chronic kidney disease with heart failure and stage 1 through stage 4 chronic kidney disease, or unspecified chronic kidney disease; E11.22 Type 2 diabetes mellitus with diabetic chronic kidney disease; N18.9 Chronic kidney disease, unspecified; I50.9 Heart failure, unspecified; C54.1 Malignant neoplasm of endometrium
CPT/HCPCS: 36415; 80053; 83615; 85025; 86304

== ENCOUNTER → 2018-01-05 | Outpatient (CLI) | payer MEDICARE, OTHER ==
[2018-01-05 11:16] LABS: Hemoglobin 10.5 g/dL (12.2-16.2); Mean Corpuscular Hemoglobin 27.4 pg (28.0-32.0); Mean Corpuscular Hgb Conc. 32.9 g/dL (32.0-36.0); Mean Corpuscular Volume 83.2 fL (80.0-100.0); Platelet Count (auto) 124 10^3/uL (140-450); Red Blood Cells 3.85 10^6/uL (4.0-5.20); White Blood Cell 9.1 10^3/uL (4.4-10.8)
[2018-01-05 11:23] LABS: Basophils % (manual) 0 (0.0-2.0); Blast Cells 0; Eosinophils % (manual) 0 (0-7); Metamyelocytes % 0; Promyelocytes % 0; Reactive Lymphocytes 0
[2018-01-05 11:51] LABS: Albumin 3.6 g/dL (3.4-5.0); BUN/Creatinine Ratio 24.4; Bilirubin, Total 0.4 mg/dL (0.2-1.0); Calcium 8.4 mg/dL (8.5-10.1); Potassium 3.9 mmol/L (3.5-5.1)
[2018-01-05 13:21] LABS: Band Neutrophils % (manual) 7; Lymphocytes % (manual) 23 (10.0-50.0); Monocytes % (manual) 14 (0-12); Myelocytes % 1
== END | disposition home or self-care (01) ==
LOC: LAB 10:05
PROVIDERS: ATTEND Internal Medicine
DX: C54.1 Malignant neoplasm of endometrium (principal); D46.9 Myelodysplastic syndrome, unspecified
CPT/HCPCS: 36415; 80053; 83615; 85007; 85027

== ENCOUNTER → 2018-01-18 | Outpatient (CLI) | payer MEDICARE, OTHER ==
[2018-01-18 10:48] LABS: Hematocrit 32.2 % (36.0-46.0); Hemoglobin 10.9 g/dL (12.2-16.2); Mean Corpuscular Hemoglobin 27.8 pg (28.0-32.0); Mean Corpuscular Hgb Conc. 33.7 g/dL (32.0-36.0); Mean Corpuscular Volume 82.5 fL (80.0-100.0); Platelet Count (auto) 114 10^3/uL (140-450)
[2018-01-18 11:01] LABS: Potassium 3.7 mmol/L (3.5-5.1)
[2018-01-18 11:09] LABS: Albumin 3.8 g/dL (3.4-5.0); BUN/Creatinine Ratio 28.3; Bilirubin, Total 0.5 mg/dL (0.2-1.0); Calcium 8.8 mg/dL (8.5-10.1); Total Protein 7.3 g/dL (6.4-8.2)
[2018-01-18 11:46] LABS: Basophils % (manual) 0 (0.0-2.0); Blast Cells 0; Promyelocytes % 0
[2018-01-18 14:23] LABS: Band Neutrophils % (manual) 9; Eosinophils % (manual) 2 (0-7); Lymphocytes % (manual) 36 (10.0-50.0); Metamyelocytes % 1; Monocytes % (manual) 9 (0-12); Myelocytes % 1; Reactive Lymphocytes 2
== END | disposition home or self-care (01) ==
LOC: LAB 10:26
PROVIDERS: ATTEND Internal Medicine
DX: C54.1 Malignant neoplasm of endometrium (principal)
CPT/HCPCS: 36415; 80053; 85007; 85027

== ENCOUNTER → 2018-01-25 | Outpatient (CLI) | payer MEDICARE, OTHER ==
[2018-01-25 09:22] LABS: White Blood Cell 2.7 10^3/uL (4.4-10.8)
[2018-01-25 09:24] LABS: Hematocrit 30.4 % (36.0-46.0); Mean Corpuscular Hemoglobin 27.3 pg (28.0-32.0); Mean Corpuscular Volume 82.8 fL (80.0-100.0); Platelet Count (auto) 60 10^3/uL (140-450); Red Blood Cells 3.68 10^6/uL (4.0-5.20); Red Cell Distribution Width 15.5 % (11.8-14.3)
[2018-01-25 09:43] LABS: Albumin 3.7 g/dL (3.4-5.0); Calcium 8.7 mg/dL (8.5-10.1); Potassium 3.8 mmol/L (3.5-5.1)
[2018-01-25 09:45] LABS: Band Neutrophils % (manual) 0; Basophils % (manual) 0 (0.0-2.0); Blast Cells 0; Eosinophils % (manual) 0 (0-7); Metamyelocytes % 0; Myelocytes % 0; Promyelocytes % 0
[2018-01-25 09:46] LABS: BUN/Creatinine Ratio 23.3; Bilirubin, Total 0.4 mg/dL (0.2-1.0)
[2018-01-25 10:35] LABS: Lymphocytes % (manual) 20 (10.0-50.0); Monocytes % (manual) 12 (0-12); Reactive Lymphocytes 2
== END | disposition home or self-care (01) ==
LOC: LAB 09:10
PROVIDERS: ATTEND Internal Medicine
DX: C54.1 Malignant neoplasm of endometrium (principal)
CPT/HCPCS: 36415; 80053; 85007; 85027

== ENCOUNTER → 2018-02-01 | Outpatient (CLI) | payer MEDICARE, OTHER ==
[2018-02-01 08:33] LABS: Hemoglobin 9.5 g/dL (12.2-16.2); Mean Corpuscular Volume 82.8 fL (80.0-100.0); White Blood Cell 4.1 10^3/uL (4.4-10.8)
[2018-02-01 08:35] LABS: Hematocrit 28.6 % (36.0-46.0); Mean Corpuscular Hemoglobin 27.6 pg (28.0-32.0); Mean Corpuscular Hgb Conc. 33.3 g/dL (32.0-36.0); Red Blood Cells 3.45 10^6/uL (4.0-5.20); Red Cell Distribution Width 15.1 % (11.8-14.3)
[2018-02-01 08:58] LABS: Platelet Count (auto) 43 10^3/uL (140-450)
[2018-02-01 08:59] LABS: Basophils % (manual) 0 (0.0-2.0); Blast Cells 0; Eosinophils % (manual) 0 (0-7); Metamyelocytes % 0; Myelocytes % 0; Promyelocytes % 0; Reactive Lymphocytes 0
[2018-02-01 09:40] LABS: Band Neutrophils % (manual) 6; Lymphocytes % (manual) 26 (10.0-50.0); Monocytes % (manual) 11 (0-12)
== END | disposition home or self-care (01) ==
LOC: LAB 08:21
PROVIDERS: ATTEND Internal Medicine
DX: C54.1 Malignant neoplasm of endometrium (principal); D46.9 Myelodysplastic syndrome, unspecified
CPT/HCPCS: 36415; 85007; 85027

== ENCOUNTER → 2018-02-04 | Outpatient (CLI) | payer MEDICARE, OTHER ==
[2018-02-04 08:43] LABS: Hemoglobin 9.4 g/dL (12.2-16.2); Mean Corpuscular Volume 82.6 fL (80.0-100.0)
[2018-02-04 08:44] LABS: Hematocrit 28.5 % (36.0-46.0); Mean Corpuscular Hemoglobin 27.1 pg (28.0-32.0); Mean Corpuscular Hgb Conc. 32.8 g/dL (32.0-36.0); Platelet Count (auto) 30 10^3/uL (140-450); Red Blood Cells 3.46 10^6/uL (4.0-5.20); Red Cell Distribution Width 15.3 % (11.8-14.3); White Blood Cell 3.9 10^3/uL (4.4-10.8)
[2018-02-04 08:46] LABS: Basophils % (manual) 0 (0.0-2.0); Blast Cells 0; Eosinophils % (manual) 0 (0-7); Metamyelocytes % 0; Myelocytes % 0; Promyelocytes % 0; Reactive Lymphocytes 0
[2018-02-04 08:59] LABS: Albumin 3.7 g/dL (3.4-5.0); Calcium 8.2 mg/dL (8.5-10.1); Potassium 3.8 mmol/L (3.5-5.1)
[2018-02-04 09:04] LABS: BUN/Creatinine Ratio 17.8; Bilirubin, Total 0.6 mg/dL (0.2-1.0); Total Protein 7.1 g/dL (6.4-8.2)
[2018-02-04 09:39] LABS: Band Neutrophils % (manual) 1; Lymphocytes % (manual) 36 (10.0-50.0); Monocytes % (manual) 10 (0-12)
== END | disposition home or self-care (01) ==
LOC: LAB 08:25
PROVIDERS: ATTEND Internal Medicine
DX: C54.1 Malignant neoplasm of endometrium (principal)
CPT/HCPCS: 36415; 80053; 83615; 85007; 85027; 86304

== ENCOUNTER → 2018-02-08 | Outpatient (CLI) | payer MEDICARE, OTHER ==
[2018-02-08 09:55] LABS: Hematocrit 27.9 % (36.0-46.0); Hemoglobin 9.4 g/dL (12.2-16.2); Mean Corpuscular Hgb Conc. 33.5 g/dL (32.0-36.0); White Blood Cell 5.6 10^3/uL (4.4-10.8)
[2018-02-08 09:57] LABS: Mean Corpuscular Hemoglobin 27.5 pg (28.0-32.0); Mean Corpuscular Volume 82.1 fL (80.0-100.0); Platelet Count (auto) 32 10^3/uL (140-450); Red Cell Distribution Width 15.5 % (11.8-14.3)
[2018-02-08 10:05] LABS: Basophils % (manual) 0 (0.0-2.0); Blast Cells 0; Eosinophils % (manual) 0 (0-7); Myelocytes % 0; Promyelocytes % 0; Reactive Lymphocytes 0
[2018-02-08 10:16] LABS: Band Neutrophils % (manual) 3; Lymphocytes % (manual) 22 (10.0-50.0); Metamyelocytes % 2; Monocytes % (manual) 8 (0-12)
== END | disposition home or self-care (01) ==
LOC: LAB 09:34
PROVIDERS: ATTEND Internal Medicine
DX: C54.1 Malignant neoplasm of endometrium (principal); D46.9 Myelodysplastic syndrome, unspecified
CPT/HCPCS: 36415; 85007; 85027

== ENCOUNTER → 2018-02-15 | Outpatient (CLI) | payer MEDICARE, OTHER ==
[2018-02-15 09:48] LABS: Hematocrit 26.8 % (36.0-46.0); Hemoglobin 9.1 g/dL (12.2-16.2); Mean Corpuscular Hemoglobin 28.2 pg (28.0-32.0); Mean Corpuscular Hgb Conc. 33.9 g/dL (32.0-36.0); Mean Corpuscular Volume 83.4 fL (80.0-100.0); Platelet Count (auto) 79 10^3/uL (140-450); Red Blood Cells 3.21 10^6/uL (4.0-5.20); Red Cell Distribution Width 16.2 % (11.8-14.3); White Blood Cell 7.9 10^3/uL (4.4-10.8)
[2018-02-15 09:49] LABS: Basophils % (manual) 0 (0.0-2.0); Blast Cells 0; Eosinophils % (manual) 0 (0-7); Metamyelocytes % 0; Myelocytes % 0; Promyelocytes % 0; Reactive Lymphocytes 0
[2018-02-15 11:50] LABS: Band Neutrophils % (manual) 13; Lymphocytes % (manual) 2 (10.0-50.0); Monocytes % (manual) 7 (0-12)
== END | disposition home or self-care (01) ==
LOC: LAB 09:31
PROVIDERS: ATTEND Internal Medicine
DX: C54.1 Malignant neoplasm of endometrium (principal)
CPT/HCPCS: 36415; 85007; 85027

== ENCOUNTER → 2018-02-22 | Outpatient (CLI) | payer MEDICARE, OTHER ==
[2018-02-22 09:17] LABS: Hematocrit 26.6 % (36.0-46.0); Hemoglobin 8.8 g/dL (12.2-16.2); Mean Corpuscular Hemoglobin 27.6 pg (28.0-32.0); Mean Corpuscular Hgb Conc. 32.9 g/dL (32.0-36.0); Mean Corpuscular Volume 84.1 fL (80.0-100.0); Platelet Count (auto) 104 10^3/uL (140-450); Red Blood Cells 3.17 10^6/uL (4.0-5.20); Red Cell Distribution Width 17.9 % (11.8-14.3); White Blood Cell 5.5 10^3/uL (4.4-10.8)
[2018-02-22 09:31] LABS: Albumin 3.3 g/dL (3.4-5.0); BUN/Creatinine Ratio 22.2; Potassium 3.8 mmol/L (3.5-5.1)
[2018-02-22 09:33] LABS: Basophils % (manual) 0 (0.0-2.0); Blast Cells 0; Eosinophils % (manual) 0 (0-7); Myelocytes % 0; Promyelocytes % 0; Reactive Lymphocytes 0
[2018-02-22 09:34] LABS: Bilirubin, Total 0.4 mg/dL (0.2-1.0); Total Protein 6.3 g/dL (6.4-8.2)
[2018-02-22 12:27] LABS: Band Neutrophils % (manual) 6; Lymphocytes % (manual) 14 (10.0-50.0); Metamyelocytes % 1; Monocytes % (manual) 9 (0-12)
== END | disposition home or self-care (01) ==
LOC: LAB 09:03
PROVIDERS: ATTEND Internal Medicine
DX: C54.1 Malignant neoplasm of endometrium (principal)
CPT/HCPCS: 36415; 80053; 83615; 85007; 85027

== ENCOUNTER → 2018-03-01 | Outpatient (CLI) | payer MEDICARE, OTHER ==
[2018-03-01 09:56] LABS: Hematocrit 27.4 % (36.0-46.0); Hemoglobin 9.1 g/dL (12.2-16.2); Mean Corpuscular Hgb Conc. 33.1 g/dL (32.0-36.0); Mean Corpuscular Volume 84.6 fL (80.0-100.0); Platelet Count (auto) 94 10^3/uL (140-450); Red Blood Cells 3.24 10^6/uL (4.0-5.20); Red Cell Distribution Width 18.8 % (11.8-14.3); White Blood Cell 5.3 10^3/uL (4.4-10.8)
[2018-03-01 10:05] LABS: Basophils % (manual) 0 (0.0-2.0); Blast Cells 0; Eosinophils % (manual) 0 (0-7); Promyelocytes % 0; Reactive Lymphocytes 0
[2018-03-01 14:34] LABS: Band Neutrophils % (manual) 8; Lymphocytes % (manual) 10 (10.0-50.0); Metamyelocytes % 1; Monocytes % (manual) 10 (0-12); Myelocytes % 2
== END | disposition home or self-care (01) ==
LOC: LAB 08:58
PROVIDERS: ATTEND Internal Medicine
DX: C54.1 Malignant neoplasm of endometrium (principal)
CPT/HCPCS: 36415; 85007; 85027

== ENCOUNTER → 2018-03-08 | Outpatient (CLI) | payer MEDICARE, OTHER ==
[2018-03-08 09:46] LABS: Hemoglobin 8.1 g/dL (12.2-16.2); Red Blood Cells 2.86 10^6/uL (4.0-5.20); White Blood Cell 4.7 10^3/uL (4.4-10.8)
[2018-03-08 09:48] LABS: Hematocrit 23.9 % (36.0-46.0); Mean Corpuscular Hemoglobin 28.1 pg (28.0-32.0); Mean Corpuscular Hgb Conc. 33.7 g/dL (32.0-36.0); Mean Corpuscular Volume 83.5 fL (80.0-100.0); Platelet Count (auto) 53 10^3/uL (140-450); Red Cell Distribution Width 18.9 % (11.8-14.3)
[2018-03-08 10:12] LABS: Basophils % (manual) 0 (0.0-2.0); Blast Cells 0; Metamyelocytes % 0; Myelocytes % 0; Promyelocytes % 0; Reactive Lymphocytes 0
[2018-03-08 11:23] LABS: Albumin 3.3 g/dL (3.4-5.0); Calcium 8.4 mg/dL (8.5-10.1); Potassium 3.8 mmol/L (3.5-5.1)
[2018-03-08 11:26] LABS: BUN/Creatinine Ratio 26.6; Bilirubin, Total 0.6 mg/dL (0.2-1.0); Total Protein 5.9 g/dL (6.4-8.2)
[2018-03-08 13:15] LABS: Band Neutrophils % (manual) 6; Eosinophils % (manual) 1 (0-7); Lymphocytes % (manual) 8 (10.0-50.0); Monocytes % (manual) 11 (0-12)
== END | disposition home or self-care (01) ==
LOC: LAB 09:15
PROVIDERS: ATTEND Internal Medicine
DX: C54.1 Malignant neoplasm of endometrium (principal)
CPT/HCPCS: 36415; 80053; 83615; 85007; 85027

== ENCOUNTER → 2018-03-16 | Outpatient (CLI) | payer MEDICARE, OTHER ==
[2018-03-16 09:48] LABS: Hemoglobin 7.2 g/dL (12.2-16.2); White Blood Cell 4.3 10^3/uL (4.4-10.8)
[2018-03-16 09:50] LABS: Hematocrit 21.7 % (36.0-46.0); Mean Corpuscular Hemoglobin 28.6 pg (28.0-32.0); Mean Corpuscular Hgb Conc. 33.1 g/dL (32.0-36.0); Mean Corpuscular Volume 86.5 fL (80.0-100.0); Platelet Count (auto) 29 10^3/uL (140-450); Red Blood Cells 2.51 10^6/uL (4.0-5.20)
[2018-03-16 09:51] LABS: Red Cell Distribution Width 20.8 % (11.8-14.3)
[2018-03-16 09:53] LABS: Basophils % (manual) 0 (0.0-2.0); Blast Cells 0; Eosinophils % (manual) 0 (0-7); Myelocytes % 0; Promyelocytes % 0; Reactive Lymphocytes 0
[2018-03-16 10:06] LABS: Band Neutrophils % (manual) 2; Lymphocytes % (manual) 23 (10.0-50.0); Metamyelocytes % 2; Monocytes % (manual) 13 (0-12)
== END | disposition home or self-care (01) ==
LOC: LAB 09:37
PROVIDERS: ATTEND Internal Medicine
DX: C54.1 Malignant neoplasm of endometrium (principal)
CPT/HCPCS: 36415; 85007; 85027

== ENCOUNTER → 2018-03-22 | Outpatient (CLI) | payer MEDICARE, OTHER ==
[2018-03-22 09:30] LABS: Mean Corpuscular Volume 88.3 fL (80.0-100.0); White Blood Cell 3.8 10^3/uL (4.4-10.8)
[2018-03-22 09:33] LABS: Hematocrit 20.3 % (36.0-46.0); Mean Corpuscular Hemoglobin 29.6 pg (28.0-32.0); Mean Corpuscular Hgb Conc. 33.6 g/dL (32.0-36.0); Platelet Count (auto) 42 10^3/uL (140-450)
[2018-03-22 09:48] LABS: Red Cell Distribution Width 23.3 % (11.8-14.3)
[2018-03-22 09:50] LABS: Hemoglobin 6.8 g/dL (12.2-16.2)
[2018-03-22 09:52] LABS: Basophils % (manual) 0 (0.0-2.0); Blast Cells 0; Eosinophils % (manual) 0 (0-7); Promyelocytes % 0; Reactive Lymphocytes 0
[2018-03-22 10:22] LABS: Band Neutrophils % (manual) 4; Lymphocytes % (manual) 22 (10.0-50.0); Metamyelocytes % 1; Monocytes % (manual) 14 (0-12); Myelocytes % 3
== END | disposition home or self-care (01) ==
LOC: LAB 09:18
PROVIDERS: ATTEND Internal Medicine
DX: C54.1 Malignant neoplasm of endometrium (principal)
CPT/HCPCS: 36415; 85007; 85027

== ENCOUNTER → 2018-03-25 | Day surgery (SDC) | payer MEDICARE, OTHER ==
[~2018-03-25] MED LIST changes: +FUROSEMIDE 20 MG/2 ML VIAL IV ONE
[2018-03-25 12:08] VITALS: BP 153/84
== END | disposition home or self-care (01) ==
LOC: SUR 08:30
PROVIDERS: ATTEND Internal Medicine
DX: D64.9 Anemia, unspecified (principal); Z88.5 Allergy status to narcotic agent; Z88.0 Allergy status to penicillin; Z82.49 Family history of ischemic heart disease and other diseases of the circulatory system
CPT/HCPCS: 36430; 86850; 86900; 86901; 86920; J1642; J1940; P9016

== ENCOUNTER → 2018-04-01 | Outpatient (CLI) | payer MEDICARE, OTHER ==
[~2018-04-01] MED LIST changes: -FUROSEMIDE 20 MG/2 ML VIAL IV ONE
[2018-04-01 10:38] LABS: Basophils % (manual) 0 (0.0-2.0); Blast Cells 0; Eosinophils % (manual) 0 (0-7); Metamyelocytes % 0; Myelocytes % 0; Promyelocytes % 0; Reactive Lymphocytes 0
[2018-04-01 10:42] LABS: Hematocrit 27.7 % (36.0-46.0); Hemoglobin 9.2 g/dL (12.2-16.2); Mean Corpuscular Hemoglobin 30.3 pg (28.0-32.0); Mean Corpuscular Hgb Conc. 33.3 g/dL (32.0-36.0); Mean Corpuscular Volume 90.9 fL (80.0-100.0); Platelet Count (auto) 77 10^3/uL (140-450); Red Blood Cells 3.04 10^6/uL (4.0-5.20); White Blood Cell 5.4 10^3/uL (4.4-10.8)
[2018-04-01 10:52] LABS: Red Cell Distribution Width 20.6 % (11.8-14.3)
[2018-04-01 11:41] LABS: Band Neutrophils % (manual) 3; Lymphocytes % (manual) 11 (10.0-50.0); Monocytes % (manual) 7 (0-12)
== END | disposition home or self-care (01) ==
LOC: LAB 10:33
PROVIDERS: ATTEND Internal Medicine
DX: C54.1 Malignant neoplasm of endometrium (principal); D46.9 Myelodysplastic syndrome, unspecified
CPT/HCPCS: 36415; 85007; 85027

== ENCOUNTER → 2018-05-13 | Outpatient (CLI) | payer MEDICARE, OTHER ==
[2018-05-13 09:07] LABS: Hemoglobin 7.9 g/dL (12.2-16.2); Platelet Count (auto) 99 10^3/uL (140-450); White Blood Cell 4.2 10^3/uL (4.4-10.8)
[2018-05-13 09:09] LABS: Hematocrit 22.9 % (36.0-46.0); Mean Corpuscular Hemoglobin 32.3 pg (28.0-32.0); Mean Corpuscular Hgb Conc. 34.6 g/dL (32.0-36.0); Mean Corpuscular Volume 93.6 fL (80.0-100.0); Red Blood Cells 2.45 10^6/uL (4.0-5.20); Red Cell Distribution Width 16.7 % (11.8-14.3)
[2018-05-13 09:15] LABS: Band Neutrophils % (manual) 0; Basophils % (manual) 0 (0.0-2.0); Blast Cells 0; Metamyelocytes % 0; Myelocytes % 0; Promyelocytes % 0; Reactive Lymphocytes 0
[2018-05-13 09:16] LABS: Albumin 3.6 g/dL (3.4-5.0); Calcium 8.4 mg/dL (8.5-10.1); Potassium 3.7 mmol/L (3.5-5.1)
[2018-05-13 09:19] LABS: BUN/Creatinine Ratio 20.5; Bilirubin, Total 0.4 mg/dL (0.2-1.0); Total Protein 6.5 g/dL (6.4-8.2)
[2018-05-13 10:45] LABS: Eosinophils % (manual) 1 (0-7); Lymphocytes % (manual) 19 (10.0-50.0); Monocytes % (manual) 8 (0-12)
== END | disposition home or self-care (01) ==
LOC: LAB 08:51
PROVIDERS: ATTEND Internal Medicine
DX: C54.1 Malignant neoplasm of endometrium (principal)
CPT/HCPCS: 36415; 80053; 83615; 85007; 85027

== ENCOUNTER → 2018-05-27 | Outpatient (CLI) | payer MEDICARE, OTHER ==
[2018-05-27 10:12] LABS: Potassium 3.8 mmol/L (3.5-5.1)
[2018-05-27 10:18] LABS: Albumin 3.6 g/dL (3.4-5.0); BUN/Creatinine Ratio 18.1; Bilirubin, Total 0.4 mg/dL (0.2-1.0); Calcium 8.7 mg/dL (8.5-10.1); Total Protein 6.6 g/dL (6.4-8.2)
[2018-05-27 10:19] LABS: Basophils # (auto) 0 uL; Eosinophils # (auto) 0 uL; Hemoglobin 8.4 g/dL (12.2-16.2); Lymphocytes # (auto) 0.8 uL; Monocytes # (auto) 0.8 uL; Red Blood Cells 2.69 10^6/uL (4.0-5.20); White Blood Cell 5.4 10^3/uL (4.4-10.8)
[2018-05-27 10:20] LABS: Basophils % (auto) 0.9 % (0.0-2.0); Eosinophils % (auto) 0.2 % (0.0-7.0); Hematocrit 25.5 % (36.0-46.0); Lymphocytes % (auto) 14.8 % (10.0-50.0); Mean Corpuscular Hemoglobin 31.3 pg (28.0-32.0); Monocytes % (auto) 14.5 % (0.0-12.0); Neutrophils # (auto) 3.7 uL; Neutrophils % (auto) 69.6 % (37.0-80.0); Nucleated Red Blood Cells % 0.2 %; Platelet Count (auto) 96 10^3/uL (140-450); Red Cell Distribution Width 15.8 % (11.8-14.3)
== END | disposition home or self-care (01) ==
LOC: LAB 09:43
PROVIDERS: ATTEND Internal Medicine
DX: D64.9 Anemia, unspecified (principal)
CPT/HCPCS: 36415; 80053; 83615; 85025

== ENCOUNTER → 2018-06-02 | Outpatient (CLI) | payer MEDICARE, OTHER ==
[2018-06-02 10:12] LABS: Hemoglobin 8.1 g/dL (12.2-16.2); Mean Corpuscular Hemoglobin 31.1 pg (28.0-32.0); Mean Corpuscular Hgb Conc. 33.2 g/dL (32.0-36.0); White Blood Cell 4.9 10^3/uL (4.4-10.8)
[2018-06-02 10:13] LABS: Hematocrit 24.3 % (36.0-46.0); Mean Corpuscular Volume 93.7 fL (80.0-100.0); Platelet Count (auto) 95 10^3/uL (140-450); Red Blood Cells 2.59 10^6/uL (4.0-5.20); Red Cell Distribution Width 15.6 % (11.8-14.3)
[2018-06-02 10:23] LABS: Basophils % (manual) 0 (0.0-2.0); Blast Cells 0; Eosinophils % (manual) 0 (0-7); Metamyelocytes % 0; Promyelocytes % 0; Reactive Lymphocytes 0
[2018-06-02 13:09] LABS: Band Neutrophils % (manual) 3; Lymphocytes % (manual) 14 (10.0-50.0); Monocytes % (manual) 17 (0-12); Myelocytes % 2
== END | disposition home or self-care (01) ==
LOC: LAB 10:03
PROVIDERS: ATTEND Internal Medicine
DX: D46.9 Myelodysplastic syndrome, unspecified (principal); E11.9 Type 2 diabetes mellitus without complications; I10 Essential (primary) hypertension
CPT/HCPCS: 36415; 85007; 85027

== ENCOUNTER → 2018-06-10 | Outpatient (CLI) | payer MEDICARE, OTHER ==
[2018-06-10 09:08] LABS: Basophils # (auto) 0 uL; Eosinophils # (auto) 0 uL; Eosinophils % (auto) 0.2 % (0.0-7.0); Lymphocytes # (auto) 0.9 uL; Mean Corpuscular Hgb Conc. 33.5 g/dL (32.0-36.0); Neutrophils # (auto) 3.1 uL; Nucleated Red Blood Cells % 0.1 %; White Blood Cell 4.7 10^3/uL (4.4-10.8)
[2018-06-10 09:10] LABS: Basophils % (auto) 0.5 % (0.0-2.0); Hematocrit 24.5 % (36.0-46.0); Hemoglobin 8.2 g/dL (12.2-16.2); Lymphocytes % (auto) 18.9 % (10.0-50.0); Mean Corpuscular Hemoglobin 30.9 pg (28.0-32.0); Mean Corpuscular Volume 92.2 fL (80.0-100.0); Monocytes # (auto) 0.7 uL; Monocytes % (auto) 14.6 % (0.0-12.0); Neutrophils % (auto) 65.8 % (37.0-80.0); Platelet Count (auto) 91 10^3/uL (140-450); Red Blood Cells 2.66 10^6/uL (4.0-5.20); Red Cell Distribution Width 15.4 % (11.8-14.3)
== END | disposition home or self-care (01) ==
LOC: LAB 08:49
PROVIDERS: ATTEND Internal Medicine
DX: D46.9 Myelodysplastic syndrome, unspecified (principal)
CPT/HCPCS: 36415; 85025

== ENCOUNTER → 2018-06-29 | Outpatient (CLI) | payer MEDICARE, OTHER ==
[2018-06-29 10:22] LABS: Hemoglobin 7.9 g/dL (12.2-16.2); Red Cell Distribution Width 14.8 % (11.8-14.3); White Blood Cell 5.3 10^3/uL (4.4-10.8)
[2018-06-29 10:26] LABS: Hematocrit 23.2 % (36.0-46.0); Mean Corpuscular Hemoglobin 30.4 pg (28.0-32.0); Mean Corpuscular Volume 89.5 fL (80.0-100.0); Platelet Count (auto) 60 10^3/uL (140-450); Red Blood Cells 2.59 10^6/uL (4.0-5.20)
[2018-06-29 10:35] LABS: Albumin 3.6 g/dL (3.4-5.0); Calcium 8.4 mg/dL (8.5-10.1); Potassium 3.5 mmol/L (3.5-5.1)
[2018-06-29 10:40] LABS: BUN/Creatinine Ratio 13.7; Bilirubin, Total 0.5 mg/dL (0.2-1.0); Total Protein 6.4 g/dL (6.4-8.2)
[2018-06-29 10:48] LABS: Basophils % (manual) 0 (0.0-2.0); Blast Cells 0; Eosinophils % (manual) 0 (0-7); Promyelocytes % 0; Reactive Lymphocytes 0
[2018-06-29 14:39] LABS: Band Neutrophils % (manual) 19; Lymphocytes % (manual) 25 (10.0-50.0); Metamyelocytes % 2; Monocytes % (manual) 3 (0-12); Myelocytes % 3
== END | disposition home or self-care (01) ==
LOC: LAB 09:52
PROVIDERS: ATTEND Internal Medicine
DX: D64.9 Anemia, unspecified (principal); I13.0 Hypertensive heart and chronic kidney disease with heart failure and stage 1 through stage 4 chronic kidney disease, or unspecified chronic kidney disease; E11.22 Type 2 diabetes mellitus with diabetic chronic kidney disease; I50.9 Heart failure, unspecified; N18.9 Chronic kidney disease, unspecified
CPT/HCPCS: 36415; 80053; 83615; 85007; 85027

== ENCOUNTER → 2018-07-19 | Outpatient (CLI) | payer MEDICARE, OTHER ==
[2018-07-19 11:17] LABS: Hematocrit 21.7 % (36.0-46.0); Hemoglobin 7.2 g/dL (12.2-16.2); Mean Corpuscular Hemoglobin 29.2 pg (28.0-32.0); Mean Corpuscular Hgb Conc. 33.2 g/dL (32.0-36.0)
[2018-07-19 11:20] LABS: Platelet Count (auto) 79 10^3/uL (140-450); Red Blood Cells 2.46 10^6/uL (4.0-5.20); Red Cell Distribution Width 15.7 % (11.8-14.3)
[2018-07-19 11:33] LABS: Albumin 3.5 g/dL (3.4-5.0); Calcium 8.4 mg/dL (8.5-10.1); Potassium 3.4 mmol/L (3.5-5.1)
[2018-07-19 11:38] LABS: BUN/Creatinine Ratio 19.9; Bilirubin, Total 0.4 mg/dL (0.2-1.0); Total Protein 6.7 g/dL (6.4-8.2)
[2018-07-19 11:39] LABS: Basophils % (manual) 0 (0.0-2.0); Blast Cells 0; Eosinophils % (manual) 0 (0-7); Promyelocytes % 0
[2018-07-19 11:54] LABS: Band Neutrophils % (manual) 12; Lymphocytes % (manual) 31 (10.0-50.0); Metamyelocytes % 1; Monocytes % (manual) 12 (0-12); Myelocytes % 2; Reactive Lymphocytes 1
== END | disposition home or self-care (01) ==
LOC: LAB 10:59
PROVIDERS: ATTEND Internal Medicine
DX: C54.1 Malignant neoplasm of endometrium (principal); D64.9 Anemia, unspecified
CPT/HCPCS: 36415; 80053; 83615; 85007; 85025; 85027

== ENCOUNTER 2018-08-23 10:05 | Inpatient (IN) | payer MEDICARE, OTHER ==
[~2018-08-23] VITALS: Ht 157.5 cm; Wt 97.9 kg
[2018-08-23 11:26] LABS: Mean Corpuscular Volume 85.7 fL (80.0-100.0)
[2018-08-23 11:28] LABS: Hematocrit 18.5 % (36.0-46.0); Mean Corpuscular Hgb Conc. 33.8 g/dL (32.0-36.0); Platelet Count (auto) 47 10^3/uL (140-450); Red Blood Cells 2.16 10^6/uL (4.0-5.20); Red Cell Distribution Width 18.3 % (11.8-14.3)
[2018-08-23 11:38] LABS: Potassium 3.2 mmol/L (3.5-5.1)
[2018-08-23 11:42] LABS: INR 1.06 (0.9-1.15); Partial Thromboplastin Time 32.7 sec (23.64-32.05); Prothrombin Time 11.4 sec (9.06-12.60)
[2018-08-23 11:47] LABS: Hemoglobin 6.3 g/dL (12.2-16.2); White Blood Cell 1.7 10^3/uL (4.4-10.8)
[2018-08-23 11:49] LABS: Basophils % (manual) 0 (0.0-2.0); Blast Cells 0; Eosinophils % (manual) 0 (0-7); Metamyelocytes % 0; Myelocytes % 0; Promyelocytes % 0; Reactive Lymphocytes 0
[2018-08-23 11:53] LABS: Albumin 3.1 g/dL (3.4-5.0); BUN/Creatinine Ratio 12.6; Bilirubin, Total 1.1 mg/dL (0.2-1.0); Calcium 7.7 mg/dL (8.5-10.1); Total Protein 7.1 g/dL (6.4-8.2)
[2018-08-23 12:09] LABS: Band Neutrophils % (manual) 4; Lymphocytes % (manual) 46 (10.0-50.0); Monocytes % (manual) 4 (0-12)
[2018-08-23] MEDS ORDERED: DEXTROSE (50%) 50ML SYRG IV PRN (13:30)
[2018-08-23] MEDS ORDERED: MORPHINE SULF INJ 2 MG/ML SYRINGE 1ML IV PRN ×2 (13:30→13:45)
[2018-08-23] MEDS ORDERED: NITROGLYCERIN 0.4 MG SL TAB SL PRN (13:30)
[2018-08-23] MEDS ORDERED: HYDROcodone-ACET 5/325MG TAB PO PRN (13:45)
[2018-08-23] MEDS ORDERED: ACETAMINOPHEN 500 MG TAB PO PRN (13:45)
[2018-08-23] MEDS: CYANOCOBALAMIN 500 MCG TAB PO SCH (14:10)
[2018-08-23] MEDS: SODIUM CHLORIDE 0.9% 1,000 ML IV SCH (15:02)
[2018-08-23] MEDS: cefTRIAXone 1GM/50ML D5W 50 ML IV SCH (15:07)
[2018-08-23] MEDS: AZITHROMYCIN 500MG/ 250ML 250 ML IV SCH (16:30)
[2018-08-23] MEDS: ACCU-CHEK COMFORT CURVE STRIP VI SCH ×2 (17:00→22:00)
[2018-08-23] MEDS: InsuLIN REG 1unit/0.01ml Soln (100units/ml) SC SCH ×2 (17:00→22:00)
[2018-08-23] MEDS ORDERED: VALS40TA2 PO (18:59)
[2018-08-23] MEDS: ALBUTEROL SULF 2.5 MG/0.5ML(0.5%) NEB SOLN NEB SCH (19:27)
[2018-08-23] MEDS: IPRATROPIUM BROM 0.5 MG/2.5ML INH SOL NEB SCH (19:27)
[2018-08-23 22:00] VITALS: BP 144/95
[2018-08-23 23:29] VITALS: BP 129/49
--- NOTE | 2018-08-23 23:33 | NUR ---
CONSENT SIGNED;I UNIT PRBC'S TRANSFUSING;PT TOLERATING WELL.B/P 140/80 HR 65;TEMP 99.0
[2018-08-24] MEDS: SODIUM CHLORIDE 0.9% 1,000 ML IV SCH (02:50)
--- NOTE | 2018-08-24 04:10 | NUR ---
PT HAD LARGE BM IN BED.[facility] LINEN CHANGE AND PT PULLED UP. TOLERATED WELL. DENIES PAIN.
[2018-08-24 05:00] VITALS: BP 125/74
[2018-08-24 06:34] LABS: Hematocrit 21.3 % (36.0-46.0); Hemoglobin 7.2 g/dL (12.2-16.2); Mean Corpuscular Hemoglobin 28.9 pg (28.0-32.0); Mean Corpuscular Volume 84.9 fL (80.0-100.0); Platelet Count (auto) 45 10^3/uL (140-450); Red Blood Cells 2.51 10^6/uL (4.0-5.20); Red Cell Distribution Width 16.8 % (11.8-14.3)
[2018-08-24] MEDS: ALBUTEROL SULF 2.5 MG/0.5ML(0.5%) NEB SOLN NEB SCH ×3 (06:49→20:06)
[2018-08-24] MEDS: IPRATROPIUM BROM 0.5 MG/2.5ML INH SOL NEB SCH ×3 (06:49→20:05)
[2018-08-24] MEDS: InsuLIN REG 1unit/0.01ml Soln (100units/ml) SC SCH ×4 (07:00→21:53)
[2018-08-24 07:03] LABS: Potassium 3.3 mmol/L (3.5-5.1)
[2018-08-24 07:10] LABS: Albumin 2.8 g/dL (3.4-5.0); BUN/Creatinine Ratio 13.3; Calcium 7.5 mg/dL (8.5-10.1)
[2018-08-24 07:11] LABS: White Blood Cell 1.4 10^3/uL (4.4-10.8)
[2018-08-24 07:13] LABS: Basophils % (manual) 0 (0.0-2.0); Blast Cells 0; Eosinophils % (manual) 0 (0-7); Metamyelocytes % 0; Myelocytes % 0; Promyelocytes % 0; Reactive Lymphocytes 0
[2018-08-24] MEDS: ACCU-CHEK COMFORT CURVE STRIP VI SCH ×4 (07:14→21:53)
--- NOTE | 2018-08-24 07:19 | NUR ---
PAGED Patient with critical WBC level, 1.4. call center coordinator hospitalist paged. Awaiting call back.
[2018-08-24 07:26] LABS: Bilirubin, Total 1.1 mg/dL (0.2-1.0); Total Protein 6.5 g/dL (6.4-8.2)
--- NOTE | 2018-08-24 07:30 | NUR ---
Opening Shift Note RECEIVED REPORT FROM NOC RN. Assumed care of patient, awake and alert. PATIENT ON OXYGEN AT 2 LPM VIA NASAL CANNULA WITH no S/S of distress/SOB or pain. BED IN LOWEST, LOCKED POSITION WITH SIDERAILS UP x2. Instructed on POC and to call for assist PRN, will continue to monitor for changes Q1hr and PRN.
--- NOTE | 2018-08-24 07:44 | NUR ---
AWARE Dr. Awan aware of change in critical WBC count, 1.4. No new orders at this time.
[2018-08-24 08:00] VITALS: BP 119/85
[2018-08-24 08:30] LABS: Band Neutrophils % (manual) 4; Lymphocytes % (manual) 22 (10.0-50.0); Monocytes % (manual) 7 (0-12)
[2018-08-24 09:21] VITALS: BP 119/85
[2018-08-24] MEDS: cefTRIAXone 1GM/50ML D5W 50 ML IV SCH (10:00)
[2018-08-24] MEDS: AZITHROMYCIN 500MG/ 250ML 250 ML IV SCH (11:07)
[2018-08-24] MEDS: POTASSIUM CHL 10 Meq TABLET PO SCH (11:07)
[2018-08-24] MEDS: CYANOCOBALAMIN 500 MCG TAB PO SCH (11:08)
--- NOTE | 2018-08-24 11:20 | NUR ---
STOOL Stool sample collected and sent to lab via bullet.
--- NOTE | 2018-08-24 12:00 | NUR ---
FAMILY AT BEDSIDE.
[2018-08-24] MEDS: FILGRASTIM(TBO) 480 MCG/0.8 ML SYRG SC SCH (12:15)
[2018-08-24 12:24] VITALS: BP 149/91
[2018-08-24] MEDS ORDERED: POTASSIUM CHL 20 Meq TABLET PO ONE (13:45)
[2018-08-24] MEDS ORDERED: predniSONE 5 MG TAB PO ONE (13:45)
[2018-08-24] MEDS: metroNIDAZOLE 500MG/100ML 100 ML IV SCH ×2 (14:00→21:53)
--- NOTE | 2018-08-24 16:15 | NUR ---
PATIENT ACTIVITY PATIENT REMOVED TELE BOX ELECTRODES AND PORTACATH CARDENAS NEEDLE.
--- NOTE | 2018-08-24 16:32 | NUR ---
assessment Patient is a 77 year old female who is alert and oriented. Prior to admission patient lived home with her daughter and functioned independently. Patient will return home on discharge and will need some assistance. Per patients daughter Linda she is requesting home health on discharge. Patient has been weak and needs PT. Patients PCP is Dr Richardson. Patient has a fww, cane, and wheelchair for home use. Per ss consult home health for physical therapy and home health aid. Patient and Linda has no preference on who provides service. MD order has been sent to [facility]. Miki Dolan at [facility] service will start on 08/26/18. Patient and Linda has been notified. Addendum: 08/24/18 at 1642 by Wendy RAM Amended: Links added.
[2018-08-24 16:50] VITALS: BP 138/49
--- NOTE | 2018-08-24 19:20 | NUR ---
Opening Shift Note Assumed care of patient, awake and alert. No S/S of distress/SOB or pain. Family at bedside. Instructed on POC and to call for assist PRN. Bed in lowest locked position, call light within reach, side rails up x2, fall precautions in place. Will continue to monitor for changes Q1hr and PRN.
[2018-08-24 21:00] VITALS: BP 136/60
--- NOTE | 2018-08-24 21:20 | NUR ---
Rounds While rounding on patient, patient was sitting on the edge on the bed and had removed nasal canula, tele monitor, and was attempting to remove port a cath. Educated patient on keeping port a cath access in, tele monitor on, and nasal cannula. Patient verbalized "I don't want them, I never have them on." Helped patient lay back in bed and applied mittens for patient safety. Will make charge nurse aware.
--- NOTE | 2018-08-24 22:00 | NUR ---
Rounds Patient has removed mittens stating "I don't want them on, what if I have to blow my nose?" Educated patient on keeping mittens on for safety. Pt continues to remove mittens. Patient also encouraged and educated to wear slip resistant socks which are at bedside, patient refusing. Will continue to monitor.
--- NOTE | 2018-08-24 22:10 | NUR ---
paged ADELINE Awan paged regarding sleeping pill. Waiting for call back. Continue care.
[2018-08-24] MEDS ORDERED: TEMAZEPAM 15 MG CAP PO ONE (22:45)
--- NOTE | 2018-08-24 22:45 | NUR ---
returned call ADELINE Awan returned call, updated on patient status and reason for call, new orders received. Continue care.
--- NOTE | 2018-08-24 23:40 | NUR ---
Rounds Bed alarm going off, pt found sitting on the edge of the bed by Conrado MAE and FLIGHT AGENT. Pt was requesting to sit in chair, due to being uncomfortable in bed. Conrado MAE helped patient with min assist to chair. Per Conrado MAE patient ambulated to chair with steady gait. Call light within reach, will continue to monitor patient.
[2018-08-25] VITALS (8 sets, daily range): BP systolic 101–154; BP diastolic 42–80
--- NOTE | 2018-08-25 00:05 | NUR ---
Rounds Patient still resting in chair. Will continue to monitor.
--- NOTE | 2018-08-25 01:23 | NUR ---
Rounds Pt verbalizing wanting to get back in bed. Assisted patient in bed. Fall precautions in place. Continue care.
[2018-08-25 06:15] LABS: Platelet Count (auto) 49 10^3/uL (140-450); Red Blood Cells 2.19 10^6/uL (4.0-5.20); White Blood Cell 4.8 10^3/uL (4.4-10.8)
[2018-08-25 06:20] LABS: Hematocrit 18.8 % (36.0-46.0); Mean Corpuscular Hgb Conc. 33.8 g/dL (32.0-36.0); Mean Corpuscular Volume 85.7 fL (80.0-100.0)
[2018-08-25] MEDS: IPRATROPIUM BROM 0.5 MG/2.5ML INH SOL NEB SCH ×3 (06:24→19:06)
[2018-08-25] MEDS: ALBUTEROL SULF 2.5 MG/0.5ML(0.5%) NEB SOLN NEB SCH ×3 (06:24→19:06)
--- NOTE | 2018-08-25 06:27 | NUR ---
Critical lab Hgb 6.3, will page hospitalist.
[2018-08-25 06:28] LABS: Hemoglobin 6.3 g/dL (12.2-16.2)
[2018-08-25 06:29] LABS: Basophils % (manual) 0 (0.0-2.0); Blast Cells 0; Eosinophils % (manual) 0 (0-7); Metamyelocytes % 0; Myelocytes % 0; Promyelocytes % 0; Reactive Lymphocytes 0
--- NOTE | 2018-08-25 06:30 | NUR ---
Hospitalist paged ADELINE Awan paged regarding critical Hgb. Waiting for call back. Continue care.
[2018-08-25] MEDS: InsuLIN REG 1unit/0.01ml Soln (100units/ml) SC SCH ×4 (06:39→21:57)
[2018-08-25] MEDS: ACCU-CHEK COMFORT CURVE STRIP VI SCH ×4 (06:39→21:57)
[2018-08-25] MEDS: metroNIDAZOLE 500MG/100ML 100 ML IV SCH (06:39)
[2018-08-25 06:46] LABS: % Iron Saturation 9.4 % (15-50)
--- NOTE | 2018-08-25 07:16 | NUR ---
Closing note Report given to Christi MAE. RN aware of critical Hgb of 6.3 and awaiting call back from hospitalist.
--- NOTE | 2018-08-25 07:20 | NUR ---
OPENING NOTE Assumed care of patient from [facility] RN, Lidia. Patient resting in bed with eyes closed, even rise and fall of chest noted. Sitter at bedside for patient's safety. Nasal cannula in position, connected to 2L O2. No S/S of distress/SOB or pain. Bed in lowest, locked position with side rails up x2. Fall precautions in place and call light within reach. Will continue to monitor for changes Q1hr and PRN.
--- NOTE | 2018-08-25 07:35 | NUR ---
PAGED manager acquisition hospitalist re-paged regarding critical Hgb level, 6.3. Awaiting call back.
--- NOTE | 2018-08-25 07:54 | NUR ---
AWARE Dr. Awan aware of critical Hbg level, new order for 1 unit PRBCs.
[2018-08-25 08:48] LABS: Ferritin 1005.6 ng/mL (10-322); Folate (Folic Acid) > 24.00 ng/mL (5.38-24)
[2018-08-25 08:57] LABS: BUN/Creatinine Ratio 14.5; Calcium 7.3 mg/dL (8.5-10.1); Potassium 3.6 mmol/L (3.5-5.1)
[2018-08-25] MEDS: POTASSIUM CHL 10 Meq TABLET PO SCH (09:41)
[2018-08-25] MEDS: FILGRASTIM(TBO) 480 MCG/0.8 ML SYRG SC SCH (09:43)
[2018-08-25] MEDS: cefTRIAXone 1GM/50ML D5W 50 ML IV SCH (09:43)
[2018-08-25] MEDS: predniSONE 5 MG TAB PO SCH (09:44)
[2018-08-25] MEDS: CYANOCOBALAMIN 500 MCG TAB PO SCH (09:44)
[2018-08-25 10:10] LABS: Band Neutrophils % (manual) 6; Lymphocytes % (manual) 5 (10.0-50.0); Monocytes % (manual) 3 (0-12)
[2018-08-25] MEDS: AZITHROMYCIN 500MG/ 250ML 250 ML IV SCH (10:32)
--- NOTE | 2018-08-25 11:29 | NUR ---
NUTRITION CONSULT/ASSESSMENT NOTES Please refer to link notes of nutrition screen form filed under the intervention section of the plan of care for further details. Est. Needs: 1450 kcal to 1950 kcal (15-20 kcal/kgBW), 50 gms to 60 gms pro (1.0-1.2 gms/kgIBW: 50 kg). Will continue to monitor pertinent labs and reassess nutrient need prn Thank you for this consult. Addendum: 08/25/18 at [address] Amended: Links added.
--- NOTE | 2018-08-25 12:25 | NUR ---
TRANSFUSION Blood transfusion started. No S/S of distress noted.
--- NOTE | 2018-08-25 12:40 | NUR ---
TRANSFUSION Patient tolerating transfusion well. No S/S of distress noted. Will continue to monitor.
--- NOTE | 2018-08-25 15:10 | NUR ---
TRANSFUSION Patient tolerated transfusion well. No S/S of distress. Will continue to monitor.
--- NOTE | 2018-08-25 19:12 | NUR ---
CLOSING NOTE Endorsed care of patient to NOC Lidia MAE.
--- NOTE | 2018-08-25 19:20 | NUR ---
Opening Shift Note Assumed care of patient, awake and alert. No S/S of distress/SOB or pain. Instructed on POC and to call for assist PRN. Bed in lowest locked position, call light within reach, side rails up x2, fall precautions in place, sitter at bedside for safety. Will continue to monitor for changes Q1hr and PRN.
[2018-08-26] VITALS (11 sets, daily range): BP systolic 112–143; BP diastolic 44–113
[2018-08-26] MEDS: ALBUTEROL SULF 2.5 MG/0.5ML(0.5%) NEB SOLN NEB SCH ×3 (06:07→18:40)
[2018-08-26] MEDS: IPRATROPIUM BROM 0.5 MG/2.5ML INH SOL NEB SCH ×3 (06:07→18:40)
[2018-08-26 06:11] LABS: Basophils # (auto) 0 uL; Basophils % (auto) 0.1 % (0.0-2.0); Eosinophils # (auto) 0 uL; Monocytes # (auto) 0.5 uL; Neutrophils # (auto) 4.1 uL; Nucleated Red Blood Cells % 0.1 %; Platelet Count (auto) 48 10^3/uL (140-450); White Blood Cell 4.9 10^3/uL (4.4-10.8)
[2018-08-26 06:14] LABS: Hematocrit 20.1 % (36.0-46.0); Lymphocytes # (auto) 0.2 uL; Lymphocytes % (auto) 5.1 % (10.0-50.0); Mean Corpuscular Hemoglobin 28.8 pg (28.0-32.0); Mean Corpuscular Hgb Conc. 34.3 g/dL (32.0-36.0); Monocytes % (auto) 9.6 % (0.0-12.0); Neutrophils % (auto) 84.2 % (37.0-80.0); Red Blood Cells 2.39 10^6/uL (4.0-5.20)
[2018-08-26] MEDS: InsuLIN REG 1unit/0.01ml Soln (100units/ml) SC SCH ×4 (06:45→21:58)
[2018-08-26] MEDS: ACCU-CHEK COMFORT CURVE STRIP VI SCH ×4 (06:45→21:58)
[2018-08-26 06:51] LABS: Hemoglobin 6.9 g/dL (12.2-16.2)
--- NOTE | 2018-08-26 06:51 | NUR ---
Critical lab Hgb 6.9, will page hospitalist.
--- NOTE | 2018-08-26 06:52 | NUR ---
Hospitalist paged Hospitalist paged in regards to critical hgb 6.9. Awaiting call back, continue care.
--- NOTE | 2018-08-26 07:08 | NUR ---
Hospitalist called back WELT DRAWER Vida Perez called back. Updated on patient status and reason for call. New orders received and read back for verification. Will endorse care to Day RN.
--- NOTE | 2018-08-26 07:30 | NUR ---
Opening Shift Note Assumed care of patient, awake and alert. No S/S of distress/SOB or pain. Instructed on POC and to call for assist PRN, will continue to monitor for changes Q1hr and PRN. SITTER AT BEDSIDE.
--- NOTE | 2018-08-26 10:00 | NUR ---
PT ASSISTED TO BEDSIDE COMMODE. TOLERATED WELL. SITTER AT BEDSIDE.
[2018-08-26] MEDS: cefTRIAXone 1GM/50ML D5W 50 ML IV SCH (10:05)
[2018-08-26] MEDS: AZITHROMYCIN 500MG/ 250ML 250 ML IV SCH (10:05)
[2018-08-26] MEDS: predniSONE 5 MG TAB PO SCH (10:06)
[2018-08-26] MEDS: POTASSIUM CHL 10 Meq TABLET PO SCH (10:06)
[2018-08-26] MEDS: CYANOCOBALAMIN 500 MCG TAB PO SCH (10:06)
[2018-08-26] MEDS ORDERED: MORPHINE SULF INJ 2 MG/ML SYRINGE 1ML IV PRN (12:30)
[2018-08-26] MEDS ORDERED: Glucerna Carbsteady SHAKE Vanilla 8oz PO ONE (12:30)
[2018-08-26] MEDS ORDERED: HYDROcodone-ACET 5/325MG TAB PO PRN (12:30)
--- NOTE | 2018-08-26 13:39 | NUR ---
PRIMARY NURSE ON BREAK PATIENT COMPLAINED OF PAIN ON LEFT SHOULDER CLOSER TO PORT-A-CATH SITE. SAID SHE FELT THE PAIN AFTER SHE WAS SIT UP ON THE CHAIR THEN TRANSFERRED TO BED. GAVE TYLENOL PO ORDERED BY . WILL INFORM PRIMARY NURSE.
--- NOTE | 2018-08-26 14:50 | NUR ---
BLOOD TRANSFUSION STARTED. PT EDUCATED ON SIGNS AND SYMPTOMS OF ADVERSE REACTION AND WHEN TO LET RN OR SITTER KNOW IF SHE STARTS TO NOTICE THEM. PT VERBALIZED UNDERSTANDING. SITTER AT BEDSIDE.
[2018-08-26] MEDS: Glucerna Carbsteady SHAKE Stawberry 8oz PO SCH (18:00)
--- NOTE | 2018-08-26 18:50 | NUR ---
BLOOD TRANSFUSION ENDED. PT RESTING WELL. DENIES PAIN AND SOB AT THIS TIME.
--- NOTE | 2018-08-26 20:00 | NUR ---
Opening Shift Note: Patient resting in bed. No complaints of pain or shortness of breath at the moment. Bed is locked in lowest position with bed rails up x2. Sitter is present but at the moment patient is AOx4 and compliant with request. She has been updated on her plan of care. Will continue to monitor.
[2018-08-27 05:00] VITALS: BP 136/69
[2018-08-27 06:17] LABS: Hematocrit 25.2 % (36.0-46.0); Hemoglobin 8.7 g/dL (12.2-16.2); Mean Corpuscular Hemoglobin 28.8 pg (28.0-32.0); Mean Corpuscular Hgb Conc. 34.5 g/dL (32.0-36.0); Mean Corpuscular Volume 83.3 fL (80.0-100.0); Platelet Count (auto) 78 10^3/uL (140-450); Red Blood Cells 3.02 10^6/uL (4.0-5.20); Red Cell Distribution Width 17.3 % (11.8-14.3); White Blood Cell 6.1 10^3/uL (4.4-10.8)
[2018-08-27 06:30] LABS: BUN/Creatinine Ratio 18.5; Calcium 7.4 mg/dL (8.5-10.1); Potassium 3.1 mmol/L (3.5-5.1)
[2018-08-27] MEDS: IPRATROPIUM BROM 0.5 MG/2.5ML INH SOL NEB SCH ×2 (06:33→12:09)
[2018-08-27] MEDS: ALBUTEROL SULF 2.5 MG/0.5ML(0.5%) NEB SOLN NEB SCH ×2 (06:33→12:09)
[2018-08-27 06:38] LABS: Basophils % (manual) 0 (0.0-2.0); Blast Cells 0; Eosinophils % (manual) 0 (0-7); Metamyelocytes % 0; Myelocytes % 0; Promyelocytes % 0; Reactive Lymphocytes 0
[2018-08-27] MEDS: InsuLIN REG 1unit/0.01ml Soln (100units/ml) SC SCH ×2 (06:51→11:30)
[2018-08-27] MEDS: ACCU-CHEK COMFORT CURVE STRIP VI SCH ×2 (06:51→13:04)
[2018-08-27 07:16] LABS: Band Neutrophils % (manual) 10; Lymphocytes % (manual) 6 (10.0-50.0); Monocytes % (manual) 3 (0-12)
[2018-08-27] MEDS: cefTRIAXone 1GM/50ML D5W 50 ML IV SCH (08:46)
[2018-08-27] MEDS: predniSONE 5 MG TAB PO SCH (08:47)
[2018-08-27] MEDS: CYANOCOBALAMIN 500 MCG TAB PO SCH (08:47)
[2018-08-27] MEDS: Glucerna Carbsteady SHAKE Stawberry 8oz PO SCH ×2 (08:48→13:04)
[2018-08-27 09:00] VITALS: BP 161/63
[2018-08-27] MEDS ORDERED: LEVO250T19 PO (09:43)
[2018-08-27] MEDS ORDERED: POTASSIUM CHL 20 Meq TABLET PO ONE (09:45)
[2018-08-27] MEDS ORDERED: LEVOFLOXACIN 250 MG TAB PO ONE (10:00)
--- NOTE | 2018-08-27 13:15 | NUR ---
DISCHARGED PATIENT DISCHARGED HOME VIA WHEELCHAIR TO PRIVATE FAMILY VEHICLE AFTER ALL DISCHARGE INSTRUCTIONS GIVEN AND ALL QUESTIONS AND CONCERNS ADDRESSED. PATIENT SHOWED NO S/S OF SOB OR DISTRESS NOTED UPON DISCHARGE. IV REMOVED WITH CLEAN STERILE TECHNIQUE, CATHETER INTACT UPON REMOVAL. PRESSURE DRESSING APPLIED. TELE REMOVED, CLEANED AND RETURNED TO [place].
== END 2018-08-27 13:15 | disposition home health service (06) | DRG 808 ==
LOC: EDBD 10:05 → ER 10:05 → TELE 13:29 → TELE-CENTR 17:14
PROVIDERS: ADMIT Nurse Practitioner Acute Care; ATTEND Internal Medicine
PROC: 30233N1 Transfusion of Nonautologous Red Blood Cells into Peripheral Vein, Percutaneous Approach (ICD-10-PCS; principal; 2018-08-23)
DX: D61.818 Other pancytopenia (principal); N17.0 Acute kidney failure with tubular necrosis; J18.9 Pneumonia, unspecified organism; J96.00 Acute respiratory failure, unspecified whether with hypoxia or hypercapnia; I50.33 Acute on chronic diastolic (congestive) heart failure; G93.41 Metabolic encephalopathy; E43 Unspecified severe protein-calorie malnutrition; I13.0 Hypertensive heart and chronic kidney disease with heart failure and stage 1 through stage 4 chronic kidney disease, or unspecified chronic kidney disease; K52.1 Toxic gastroenteritis and colitis; D68.69 Other thrombophilia; D75.81 Myelofibrosis; D46.9 Myelodysplastic syndrome, unspecified; N18.3 Chronic kidney disease, stage 3 (moderate); E11.22 Type 2 diabetes mellitus with diabetic chronic kidney disease; I48.91 Unspecified atrial fibrillation; E66.01 Morbid (severe) obesity due to excess calories; D89.9 Disorder involving the immune mechanism, unspecified; E11.21 Type 2 diabetes mellitus with diabetic nephropathy; E11.51 Type 2 diabetes mellitus with diabetic peripheral angiopathy without gangrene; E87.6 Hypokalemia; I67.2 Cerebral atherosclerosis; I70.0 Atherosclerosis of aorta; T45.1X5A Adverse effect of antineoplastic and immunosuppressive drugs, initial encounter; I87.2 Venous insufficiency (chronic) (peripheral); Z81.8 Family history of other mental and behavioral disorders; Z68.39 Body mass index [BMI] 39.0-39.9, adult; Z82.49 Family history of ischemic heart disease and other diseases of the circulatory system; Z85.42 Personal history of malignant neoplasm of other parts of uterus; Z85.43 Personal history of malignant neoplasm of ovary; Z87.442 Personal history of urinary calculi; Z90.710 Acquired absence of both cervix and uterus; Z90.722 Acquired absence of ovaries, bilateral; Z90.79 Acquired absence of other genital organ(s); Z92.3 Personal history of irradiation; Z92.21 Personal history of antineoplastic chemotherapy; Z88.5 Allergy status to narcotic agent; Z88.0 Allergy status to penicillin; Z79.899 Other long term (current) drug therapy; Z79.84 Long term (current) use of oral hypoglycemic drugs; Y92.098 Other place in other non-institutional residence as the place of occurrence of the external cause
CPT/HCPCS: 36415; 36430; 70450; 71045; 80048; 80053; 82728; 82746; 82962; 83540; 83550; 83615; 83735; 83880; 84484; 85007; 85025; 85027; 85610; 85730; 86850; 86900; 86901; 86920; 87045; 87493; 87899; 93005; 93306; 94640; 96361; 96365; 96367; G0378; J0696; J1447; J1642; J1815; J3490

== ENCOUNTER → 2018-09-01 | Outpatient (CLI) | payer MEDICARE, OTHER ==
[~2018-09-01] MED LIST changes: -AML5T PO; +LEVO250T19 PO; -METF-370 PO; +VALS40TA2 PO
[2018-09-01 10:51] LABS: Hematocrit 28.7 % (36.0-46.0); Hemoglobin 9.5 g/dL (12.2-16.2); Mean Corpuscular Hemoglobin 27.9 pg (28.0-32.0); Mean Corpuscular Volume 84.6 fL (80.0-100.0); Platelet Count (auto) 102 10^3/uL (140-450); Red Blood Cells 3.39 10^6/uL (4.0-5.20); Red Cell Distribution Width 17.8 % (11.8-14.3); White Blood Cell 3.3 10^3/uL (4.4-10.8)
[2018-09-01 10:55] LABS: Basophils % (manual) 0 (0.0-2.0); Blast Cells 0; Promyelocytes % 0; Reactive Lymphocytes 0
[2018-09-01 11:42] LABS: BUN/Creatinine Ratio 17.6; Calcium 8.8 mg/dL (8.5-10.1); Potassium 3.5 mmol/L (3.5-5.1)
[2018-09-01 12:38] LABS: Band Neutrophils % (manual) 13; Eosinophils % (manual) 1 (0-7); Lymphocytes % (manual) 34 (10.0-50.0); Metamyelocytes % 6; Monocytes % (manual) 9 (0-12); Myelocytes % 2
== END | disposition home or self-care (01) ==
LOC: LAB 09:22
PROVIDERS: ATTEND Internal Medicine
DX: D61.818 Other pancytopenia (principal)
CPT/HCPCS: 36415; 80048; 85007; 85027

== ENCOUNTER → 2018-10-21 | Outpatient (CLI) | payer MEDICARE, BC ==
[2018-10-21 10:27] LABS: Hemoglobin 8.1 g/dL (12.2-16.2)
[2018-10-21 10:36] LABS: Hematocrit 24.2 % (36.0-46.0); Mean Corpuscular Hemoglobin 30.3 pg (28.0-32.0); Mean Corpuscular Hgb Conc. 33.4 g/dL (32.0-36.0); Mean Corpuscular Volume 90.7 fL (80.0-100.0); Platelet Count (auto) 66 10^3/uL (140-450); Red Blood Cells 2.66 10^6/uL (4.0-5.20); White Blood Cell 3.7 10^3/uL (4.4-10.8)
[2018-10-21 10:39] LABS: Albumin 3.3 g/dL (3.4-5.0); Calcium 8.4 mg/dL (8.5-10.1); Potassium 3.8 mmol/L (3.5-5.1)
[2018-10-21 10:44] LABS: BUN/Creatinine Ratio 24.5; Bilirubin, Total 0.3 mg/dL (0.2-1.0); Total Protein 6.4 g/dL (6.4-8.2)
[2018-10-21 11:06] LABS: Red Cell Distribution Width 21.9 % (11.8-14.3)
[2018-10-21 11:07] LABS: Band Neutrophils % (manual) 0; Basophils % (manual) 0 (0.0-2.0); Blast Cells 0; Eosinophils % (manual) 0 (0-7); Metamyelocytes % 0; Promyelocytes % 0; Reactive Lymphocytes 0
[2018-10-21 15:22] LABS: Lymphocytes % (manual) 26 (10.0-50.0); Monocytes % (manual) 14 (0-12); Myelocytes % 2
== END | disposition home or self-care (01) ==
LOC: LAB 09:57
PROVIDERS: ATTEND Internal Medicine
DX: D46.9 Myelodysplastic syndrome, unspecified (principal)
CPT/HCPCS: 36415; 80053; 83615; 85007; 85027

== ENCOUNTER → 2018-11-04 | Outpatient (CLI) | payer MEDICARE, BC ==
[2018-11-04 12:49] LABS: Hematocrit 25.6 % (36.0-46.0); Hemoglobin 8.6 g/dL (12.2-16.2); Mean Corpuscular Hemoglobin 30.7 pg (28.0-32.0); Mean Corpuscular Hgb Conc. 33.7 g/dL (32.0-36.0); Platelet Count (auto) 77 10^3/uL (140-450); Red Blood Cells 2.81 10^6/uL (4.0-5.20); Red Cell Distribution Width 19.7 % (11.8-14.3); White Blood Cell 4.2 10^3/uL (4.4-10.8)
[2018-11-04 12:59] LABS: Band Neutrophils % (manual) 0; Basophils % (manual) 0 (0.0-2.0); Blast Cells 0; Eosinophils % (manual) 0 (0-7); Metamyelocytes % 0; Myelocytes % 0; Promyelocytes % 0; Reactive Lymphocytes 0
[2018-11-04 15:11] LABS: Lymphocytes % (manual) 13 (10.0-50.0); Monocytes % (manual) 4 (0-12)
== END | disposition home or self-care (01) ==
LOC: LAB 12:42
PROVIDERS: ATTEND Internal Medicine
DX: D46.9 Myelodysplastic syndrome, unspecified (principal)
CPT/HCPCS: 36415; 85007; 85027

== ENCOUNTER → 2018-11-23 | Outpatient (CLI) | payer MEDICARE, BC ==
[2018-11-23 11:14] LABS: Hematocrit 25.3 % (36.0-46.0); Hemoglobin 8.5 g/dL (12.2-16.2); Mean Corpuscular Hemoglobin 31.7 pg (28.0-32.0); Mean Corpuscular Hgb Conc. 33.8 g/dL (32.0-36.0); Mean Corpuscular Volume 93.8 fL (80.0-100.0); Platelet Count (auto) 83 10^3/uL (140-450); Red Cell Distribution Width 17.4 % (11.8-14.3); White Blood Cell 3.1 10^3/uL (4.4-10.8)
[2018-11-23 11:24] LABS: Basophils % (manual) 0 (0.0-2.0); Blast Cells 0; Eosinophils % (manual) 0 (0-7); Metamyelocytes % 0; Myelocytes % 0; Promyelocytes % 0; Reactive Lymphocytes 0
[2018-11-23 12:00] LABS: % Iron Saturation 29.6 % (15-50)
[2018-11-23 13:13] LABS: Band Neutrophils % (manual) 6
[2018-11-23 13:14] LABS: Lymphocytes % (manual) 24 (10.0-50.0); Monocytes % (manual) 5 (0-12)
[2018-11-23 13:55] LABS: Folate (Folic Acid) > 24.00 ng/mL (5.38-24)
== END | disposition home or self-care (01) ==
LOC: LAB 11:04
PROVIDERS: ATTEND Internal Medicine
DX: D46.9 Myelodysplastic syndrome, unspecified (principal)
CPT/HCPCS: 36415; 82607; 82728; 82746; 83540; 83550; 85007; 85027

== ENCOUNTER → 2019-01-12 | Outpatient (CLI) | payer MEDICARE, BC ==
[2019-01-12 10:38] LABS: Basophils # (auto) 0 uL; Basophils % (auto) 0.5 % (0.0-2.0); Eosinophils # (auto) 0 uL; Eosinophils % (auto) 0.5 % (0.0-7.0); Hematocrit 27.8 % (36.0-46.0); Hemoglobin 9.5 g/dL (12.2-16.2); Lymphocytes # (auto) 0.9 uL; Lymphocytes % (auto) 25.5 % (10.0-50.0); Mean Corpuscular Hemoglobin 31.9 pg (28.0-32.0); Mean Corpuscular Volume 93.8 fL (80.0-100.0); Monocytes # (auto) 0.3 uL; Monocytes % (auto) 7.9 % (0.0-12.0); Neutrophils # (auto) 2.4 uL; Neutrophils % (auto) 65.6 % (37.0-80.0); Nucleated Red Blood Cells % 0.1 %; Platelet Count (auto) 69 10^3/uL (140-450); Red Blood Cells 2.97 10^6/uL (4.0-5.20); Red Cell Distribution Width 14.5 % (11.8-14.3); White Blood Cell 3.7 10^3/uL (4.4-10.8)
[2019-01-12 11:57] LABS: Albumin 3.8 g/dL (3.4-5.0); Calcium 8.7 mg/dL (8.5-10.1); Potassium 3.6 mmol/L (3.5-5.1)
[2019-01-12 12:00] LABS: BUN/Creatinine Ratio 17.5; Bilirubin, Total 0.4 mg/dL (0.2-1.0); Total Protein 7.1 g/dL (6.4-8.2)
== END | disposition home or self-care (01) ==
LOC: LAB 10:13
PROVIDERS: ATTEND Internal Medicine
DX: C54.1 Malignant neoplasm of endometrium (principal); D46.9 Myelodysplastic syndrome, unspecified; I13.0 Hypertensive heart and chronic kidney disease with heart failure and stage 1 through stage 4 chronic kidney disease, or unspecified chronic kidney disease; E11.22 Type 2 diabetes mellitus with diabetic chronic kidney disease; N18.3 Chronic kidney disease, stage 3 (moderate); I50.33 Acute on chronic diastolic (congestive) heart failure
CPT/HCPCS: 36415; 80053; 83615; 85025; 86304

== ENCOUNTER → 2019-01-25 | Outpatient (CLI) | payer MEDICARE, BC ==
[2019-01-25 10:33] LABS: Hematocrit 29.1 % (36.0-46.0); Hemoglobin 9.8 g/dL (12.2-16.2); Mean Corpuscular Hemoglobin 31.6 pg (28.0-32.0); Mean Corpuscular Hgb Conc. 33.7 g/dL (32.0-36.0); Mean Corpuscular Volume 93.9 fL (80.0-100.0); Platelet Count (auto) 73 10^3/uL (140-450); Red Cell Distribution Width 14.4 % (11.8-14.3); White Blood Cell 3.3 10^3/uL (4.4-10.8)
[2019-01-25 10:39] LABS: Basophils % (manual) 0 (0.0-2.0); Blast Cells 0; Eosinophils % (manual) 0 (0-7); Myelocytes % 0; Promyelocytes % 0; Reactive Lymphocytes 0
[2019-01-25 10:52] LABS: Band Neutrophils % (manual) 1; Lymphocytes % (manual) 26 (10.0-50.0); Metamyelocytes % 1; Monocytes % (manual) 13 (0-12)
[2019-01-25 11:48] LABS: Albumin 3.7 g/dL (3.4-5.0); Bilirubin, Total 0.3 mg/dL (0.2-1.0); Calcium 8.9 mg/dL (8.5-10.1); Potassium 3.7 mmol/L (3.5-5.1); Uric Acid 6.7 mg/dL (2.6-6.0)
== END | disposition home or self-care (01) ==
LOC: LAB 10:06
PROVIDERS: ATTEND Internal Medicine
DX: E11.9 Type 2 diabetes mellitus without complications (principal); D46.9 Myelodysplastic syndrome, unspecified; I10 Essential (primary) hypertension
CPT/HCPCS: 36415; 80053; 80061; 83036; 83970; 84439; 84443; 84550; 85007; 85027; 85652

== ENCOUNTER → 2019-03-23 | Outpatient (CLI) | payer MEDICARE, BC ==
[2019-03-23 10:03] LABS: Hemoglobin 9.5 g/dL (12.2-16.2)
[2019-03-23 10:05] LABS: Mean Corpuscular Hemoglobin 32.1 pg (28.0-32.0); Mean Corpuscular Hgb Conc. 33.9 g/dL (32.0-36.0); Mean Corpuscular Volume 94.6 fL (80.0-100.0); Platelet Count (auto) 60 10^3/uL (140-450); Red Blood Cells 2.96 10^6/uL (4.0-5.20); White Blood Cell 3.3 10^3/uL (4.4-10.8)
[2019-03-23 10:09] LABS: Basophils % (manual) 0 (0.0-2.0); Blast Cells 0; Eosinophils % (manual) 0 (0-7); Myelocytes % 0; Promyelocytes % 0; Reactive Lymphocytes 0
[2019-03-23 10:48] LABS: Potassium 3.8 mmol/L (3.5-5.1)
[2019-03-23 10:49] LABS: Band Neutrophils % (manual) 1; Lymphocytes % (manual) 21 (10.0-50.0); Metamyelocytes % 1; Monocytes % (manual) 7 (0-12)
[2019-03-23 10:55] LABS: Albumin 3.9 g/dL (3.4-5.0); BUN/Creatinine Ratio 21.6; Bilirubin, Total 0.4 mg/dL (0.2-1.0); Calcium 8.6 mg/dL (8.5-10.1); Total Protein 7.1 g/dL (6.4-8.2)
== END | disposition home or self-care (01) ==
LOC: LAB 09:31
PROVIDERS: ATTEND Internal Medicine
DX: D46.9 Myelodysplastic syndrome, unspecified (principal); C54.1 Malignant neoplasm of endometrium
CPT/HCPCS: 36415; 80053; 83615; 85007; 85027; 86304

== ENCOUNTER → 2019-04-27 | Outpatient (CLI) | payer MEDICARE, BC ==
[2019-04-27 10:51] LABS: Hematocrit 26.9 % (36.0-46.0); Hemoglobin 9.2 g/dL (12.2-16.2); Mean Corpuscular Hgb Conc. 34.1 g/dL (32.0-36.0); Mean Corpuscular Volume 93.7 fL (80.0-100.0); Platelet Count (auto) 83 10^3/uL (140-450); Red Blood Cells 2.87 10^6/uL (4.0-5.20)
[2019-04-27 10:58] LABS: Basophils % (manual) 0 (0.0-2.0); Blast Cells 0; Eosinophils % (manual) 0 (0-7); Myelocytes % 0; Promyelocytes % 0; Reactive Lymphocytes 0
[2019-04-27 11:09] LABS: Potassium 3.8 mmol/L (3.5-5.1)
[2019-04-27 11:14] LABS: Albumin 3.7 g/dL (3.4-5.0); BUN/Creatinine Ratio 19.4; Bilirubin, Total 0.3 mg/dL (0.2-1.0); Calcium 8.4 mg/dL (8.5-10.1); Total Protein 6.8 g/dL (6.4-8.2)
[2019-04-27 11:30] LABS: Band Neutrophils % (manual) 2; Lymphocytes % (manual) 26 (10.0-50.0); Metamyelocytes % 4; Monocytes % (manual) 9 (0-12)
== END | disposition home or self-care (01) ==
LOC: LAB 10:38
PROVIDERS: ATTEND Internal Medicine
DX: C54.1 Malignant neoplasm of endometrium (principal)
CPT/HCPCS: 36415; 80053; 83615; 85007; 85027

== ENCOUNTER → 2019-06-22 | Outpatient (CLI) | payer MEDICARE, BC ==
[2019-06-22 11:25] LABS: Hematocrit 27.1 % (36.0-46.0); Mean Corpuscular Hemoglobin 31.3 pg (28.0-32.0); Mean Corpuscular Hgb Conc. 33.2 g/dL (32.0-36.0); Mean Corpuscular Volume 94.2 fL (80.0-100.0); Platelet Count (auto) 78 10^3/uL (140-450); Red Blood Cells 2.88 10^6/uL (4.0-5.20); Red Cell Distribution Width 16.8 % (11.8-14.3); White Blood Cell 6.2 10^3/uL (4.4-10.8)
[2019-06-22 11:37] LABS: Basophils % (manual) 0 (0.0-2.0); Blast Cells 0; Eosinophils % (manual) 0 (0-7); Myelocytes % 0; Promyelocytes % 0
[2019-06-22 12:03] LABS: Potassium 3.8 mmol/L (3.5-5.1)
[2019-06-22 12:11] LABS: Albumin 3.8 g/dL (3.4-5.0); BUN/Creatinine Ratio 19.4; Bilirubin, Total 0.5 mg/dL (0.2-1.0); Calcium 9.1 mg/dL (8.5-10.1); Total Protein 7.4 g/dL (6.4-8.2)
[2019-06-22 13:50] LABS: Band Neutrophils % (manual) 4; Lymphocytes % (manual) 22 (10.0-50.0); Metamyelocytes % 2; Monocytes % (manual) 7 (0-12); Reactive Lymphocytes 2
== END | disposition home or self-care (01) ==
LOC: LAB 10:50
PROVIDERS: ATTEND Internal Medicine
DX: C54.1 Malignant neoplasm of endometrium (principal); D64.9 Anemia, unspecified
CPT/HCPCS: 36415; 80053; 83615; 85007; 85027; 86304

== ENCOUNTER → 2019-08-25 | Outpatient (CLI) | payer MEDICARE, BC ==
[~2019-08-25] VITALS: Ht 157.5 cm; Wt 123.8 kg
[~2019-08-25] MED LIST changes: +ADENOSINE 104 MG in GIVE UN-DILUTED 0 ML IV STA
== END | disposition home or self-care (01) ==
LOC: XY 07:13
PROVIDERS: ATTEND Internal Medicine
DX: Z01.810 Encounter for preprocedural cardiovascular examination (principal); I65.22 Occlusion and stenosis of left carotid artery
CPT/HCPCS: 78452; 93017; 93886; A9500; J0153

== ENCOUNTER 2019-09-14 08:25 | Day surgery (SDC) | payer MEDICARE, BC ==
[2019-09-12 12:52] LABS: Hematocrit 27.8 % (36.0-46.0); Hemoglobin 9.3 g/dL (12.2-16.2); Mean Corpuscular Hemoglobin 32.1 pg (28.0-32.0); Mean Corpuscular Hgb Conc. 33.5 g/dL (32.0-36.0); Mean Corpuscular Volume 95.7 fL (80.0-100.0); Platelet Count (auto) 74 10^3/uL (140-450); Red Blood Cells 2.91 10^6/uL (4.0-5.20); Red Cell Distribution Width 16.4 % (11.8-14.3); White Blood Cell 6.3 10^3/uL (4.4-10.8)
[2019-09-12 12:58] LABS: Basophils % (manual) 0 (0.0-2.0); Blast Cells 0; Eosinophils % (manual) 0 (0-7); Metamyelocytes % 0; Myelocytes % 0; Promyelocytes % 0; Reactive Lymphocytes 0
[2019-09-12 13:03] LABS: INR 0.97 (0.9-1.15); Partial Thromboplastin Time 26.6 sec (23.64-32.05)
[2019-09-12 13:21] LABS: Band Neutrophils % (manual) 1; Lymphocytes % (manual) 15 (10.0-50.0); Monocytes % (manual) 4 (0-12)
[2019-09-12 14:57] LABS: Albumin 3.7 g/dL (3.4-5.0); BUN/Creatinine Ratio 21.2; Calcium 8.7 mg/dL (8.5-10.1); Potassium 3.8 mmol/L (3.5-5.1)
[2019-09-12 15:00] LABS: Bilirubin, Total 0.4 mg/dL (0.2-1.0); Total Protein 7.3 g/dL (6.4-8.2)
[~2019-09-14] VITALS: Ht 157.5 cm; Wt 102.5 kg
[~2019-09-14 08:25] MED LIST changes: -ADENOSINE 104 MG in GIVE UN-DILUTED 0 ML IV STA; +ASPI-404 PO; -CALC500T87 PO; +CHOL200010 PO; -LEVO250T19 PO; +OYST500T29 PO; +PRED-158 PO; -[UNRECOGNIZED DRUG - CODE] PO
[2019-09-14] MEDS ORDERED: levoFLOXacin 500MG 100 ML IV ONE (09:27)
[2019-09-14] MEDS ORDERED: fentaNYL CITRATE 100 MCG/2 ML VL ONE (11:33)
[2019-09-14] MEDS ORDERED: ROCURONIUM 10MG/ML 10ML VIAL IV ONE (11:33)
[2019-09-14] MEDS ORDERED: MIDAZOLAM HCL 1MG/1ML-2 ML VIAL ONE (11:33)
[2019-09-14] MEDS ORDERED: MEPERIDINE HCL (25 MG/ML) 1ML VIAL ONE (11:33)
[2019-09-14] MEDS ORDERED: ONDANSETRON HCL 4 MG/2 ML VIAL ONE (11:34)
[2019-09-14] MEDS ORDERED: PROPOFOL 10 MG/ML 20 ML IV ONE (11:34)
[2019-09-14] MEDS ORDERED: LIDOCAINE 1% HCL (LOCAL ANESTH.) INJ 20ML MDV ONE (12:44)
[2019-09-14] MEDS ORDERED: SUCCINYLCHOLINE CHLORIDE 20 MG/ML 10ML VIAL IV ONE (12:44)
[2019-09-14] MEDS ORDERED: HYDROmorphone HCL 2 MG/ML VL IV PRN (13:30)
[2019-09-14] MEDS ORDERED: MORPHINE SULFATE 4 MG/ML SYR/VIAL IV PRN (13:30)
[2019-09-14] MEDS ORDERED: ONDANSETRON HCL 4 MG/2 ML VIAL IV PRN (13:30)
[2019-09-15 14:36] VITALS: BP 115/53
== END 2019-09-14 15:10 | disposition home or self-care (01) ==
LOC: SUR 08:25
PROVIDERS: ATTEND Surgery
DX: R22.0 Localized swelling, mass and lump, head (principal); C44.329 Squamous cell carcinoma of skin of other parts of face; E11.22 Type 2 diabetes mellitus with diabetic chronic kidney disease; I12.9 Hypertensive chronic kidney disease with stage 1 through stage 4 chronic kidney disease, or unspecified chronic kidney disease; N18.4 Chronic kidney disease, stage 4 (severe); E66.01 Morbid (severe) obesity due to excess calories; J44.9 Chronic obstructive pulmonary disease, unspecified; I49.9 Cardiac arrhythmia, unspecified; I48.91 Unspecified atrial fibrillation; Z90.710 Acquired absence of both cervix and uterus; Z88.0 Allergy status to penicillin; Z88.5 Allergy status to narcotic agent; Z85.828 Personal history of other malignant neoplasm of skin; Z68.41 Body mass index [BMI] 40.0-44.9, adult; Z98.890 Other specified postprocedural states; Z79.899 Other long term (current) drug therapy; Z11.59 Encounter for screening for other viral diseases
CPT/HCPCS: 11106; 36415; 80053; 82962; 85007; 85027; 85610; 85730; 87635; J0330; J1956; J2001; J2175; J2250; J2405; J2704; J3010

== ENCOUNTER 2019-12-21 14:51 | Inpatient (IN) | payer MEDICARE, OTHER ==
[~2019-12-21] VITALS: Ht 165.1 cm; Wt 104.0 kg
[~2019-12-21 14:51] MED LIST changes: -ASPI-404 PO; +ASPI-543 PO
[2019-12-21 17:35] LABS: Hemoglobin 7.6 g/dL (12.2-16.2); White Blood Cell 7.4 10^3/uL (4.4-10.8)
[2019-12-21 17:36] LABS: Hematocrit 24.8 % (36.0-46.0); Mean Corpuscular Hemoglobin 28.3 pg (28.0-32.0); Mean Corpuscular Hgb Conc. 30.4 g/dL (32.0-36.0); Mean Corpuscular Volume 92.9 fL (80.0-100.0); Platelet Count (auto) 102 10^3/uL (140-450); Red Blood Cells 2.67 10^6/uL (4.0-5.20); Red Cell Distribution Width 17.4 % (11.8-14.3)
[2019-12-21 18:05] LABS: Band Neutrophils % (manual) 0; Basophils % (manual) 0 (0.0-2.0); Blast Cells 0; Eosinophils % (manual) 0 (0-7); Metamyelocytes % 0; Myelocytes % 0; Promyelocytes % 0; Reactive Lymphocytes 0
[2019-12-21] MEDS ORDERED: MORPHINE SULF INJ 2 MG/ML SYRINGE 1ML IV PRN ×3 (18:15→20:30)
[2019-12-21] MEDS ORDERED: NITROGLYCERIN 0.4 MG SL TAB SL PRN ×2 (18:15→20:30)
[2019-12-21] MEDS ORDERED: PANTOPRAZOLE 40 MG/10 ML VIAL INJ IV ONE (18:30)
[2019-12-21] MEDS ORDERED: CLINDAMYCIN 600MG IV 50 ML IV ONE (18:30)
[2019-12-21] MEDS ORDERED: VALS1TAB57 PO (20:05)
[2019-12-21 20:25] LABS: Urine Bacteria NONE SEEN /hpf (None Seen); Urine Blood 1+ /uL (Negative); Urine Hyaline Cast FEW /lpf (0 - 2); Urine Mucus FEW (None Seen); Urine Specific Gravity 1.014 (1.001-1.035); Urine WBC 3 /hpf (0 - 5)
[2019-12-21 20:25] LABS: Lymphocytes % (manual) 14 (10.0-50.0); Monocytes % (manual) 12 (0-12)
[2019-12-21] MEDS ORDERED: MEROPENEM 500MG IVPB 50 ML IV ONE (20:30)
[2019-12-21] MEDS ORDERED: ONDANSETRON HCL 4 MG/2 ML VIAL IV PRN (20:30)
[2019-12-21] MEDS ORDERED: LORazepam 0.5 MG TAB PO PRN (20:30)
[2019-12-21] MEDS ORDERED: DOCUSATE SOD 100 MG CAP PO PRN (20:30)
[2019-12-21] MEDS ORDERED: HYDROcodone-ACET 5/325MG TAB PO PRN (20:30)
[2019-12-21] MEDS ORDERED: ALUM & MAG HYDROX-SIMETH LIQ(MAALOX) 30 ML PO PRN (20:30)
[2019-12-21] MEDS ORDERED: FOLIC ACID 1 MG TAB PO ONE (20:30)
[2019-12-21] MEDS ORDERED: ACETAMINOPHEN 325 MG TAB PO PRN (20:30)
[2019-12-21] MEDS ORDERED: VANCOMYCIN PER PHARMACY 0 MG IV SCH (20:30)
[2019-12-21] MEDS ORDERED: OFLOXACIN OTIC(EAR) 0.3 % DROP 5ML EACH EAR ONE (20:30)
[2019-12-21] MEDS ORDERED: CYANOCOBALAMIN 500 MCG TAB PO ONE (20:30)
[2019-12-21 21:00] VITALS: BP 157/70
[2019-12-21] MEDS ORDERED: VANCOMYCIN 1GM/250ML 250 ML IV ONE (21:00)
[2019-12-21 21:09] LABS: Anion Gap 11 (5-15); Blood Urea Nitrogen 20 mg/dL (7-18); Calcium 7.7 mg/dL (8.5-10.1); Carbon Dioxide 21 mmol/L (21-32); Chloride 100 mmol/L (98-107); Glucose 113 mg/dL (74-106); Magnesium 2.1 mg/dL (1.6-2.6); Potassium 3.6 mmol/L (3.5-5.1); Sodium 132 mmol/L (136-145)
[2019-12-21 21:15] LABS: Alanine Aminotransferase 13 U/L (13-56); Alkaline Phosphatase 69 U/L (45-117); Aspartate Aminotransferase 11 U/L (15-37); BUN/Creatinine Ratio 10.7; GFR African American 33 mL/min; GFR Non-African American 27 mL/min; Total Protein 7.3 g/dL (6.4-8.2)
[2019-12-21 22:49] VITALS: BP 157/70
[2019-12-21] MEDS: SODIUM CHLORIDE 0.9% 1,000 ML IV SCH (22:51)
[2019-12-22 01:33] LABS: INR 1.17 (0.9-1.15); Partial Thromboplastin Time 36.5 sec (23.0-31.2)
[2019-12-22 06:17] VITALS: BP 120/63
[2019-12-22 07:28] LABS: Alcohol, Urine < 3.0 mg/dL (0-10); Amphetamine Screen, Urine NEGATIVE (NEGATIVE); Barbiturate Scree,Urine NEGATIVE (NEGATIVE); Benzodiazephine Screen, Urine NEGATIVE (NEGATIVE); Cannabinoid Screen, Urine NEGATIVE (NEGATIVE); Cocaine Screen, Urine NEGATIVE (NEGATIVE); Opiate Scree,Urine NEGATIVE (NEGATIVE); Phencyclidine Screen, Urine NEGATIVE (NEGATIVE)
[2019-12-22 08:28] LABS: Cholesterol 151 mg/dL (< 200); HDL Cholesterol 51 mg/dL (40-59); LDL Cholesterol 89 mg/dL (< 100); Triglycerides 114 mg/dL (< 150)
[2019-12-22 09:00] VITALS: BP 96/56
[2019-12-22] MEDS: CALCIUM CARB 500 MG CHEW TAB PO SCH ×3 (09:34→16:03)
[2019-12-22] MEDS: FOLIC ACID 1 MG TAB PO SCH (09:35)
[2019-12-22] MEDS: CYANOCOBALAMIN 500 MCG TAB PO SCH (09:35)
[2019-12-22] MEDS: ASPirin 81 mg TAB PO SCH (09:35)
[2019-12-22] MEDS ORDERED: MEROPENEM 500MG IVPB 50 ML IV SCH ×2 (10:00)
[2019-12-22] MEDS ORDERED: OFLOXACIN OTIC(EAR) 0.3 % DROP 5ML EACH EAR SCH (10:00)
[2019-12-22] MEDS ORDERED: CHOLECALCIFEROL (VITD3) 2,000 UNIT CAP PO SCH (10:00)
[2019-12-22] MEDS ORDERED: LOSARTAN POTASSIUM 25 MG TAB PO SCH (10:00)
[2019-12-22] MEDS: SODIUM CHLORIDE 0.9% 1,000 ML IV SCH (11:03)
[2019-12-22 13:00] VITALS: BP 131/50
[2019-12-22] MEDS ORDERED: LORazepam 2MG/ML-1ML VIAL IV ONE (14:30)
[2019-12-22] MEDS ORDERED: OFLOXACIN OTIC(EAR) 0.3 % DROP 5ML RIGHT EAR ONE (14:30)
[2019-12-22 17:00] VITALS: BP 139/70
[2019-12-22 21:34] VITALS: BP 140/66
[2019-12-22] MEDS: MEROPENEM 500MG IVPB 50 ML IV SCH (22:20)
[2019-12-23 06:00] VITALS: BP 117/102
[2019-12-23 06:49] LABS: Basophils # (auto) 0.1 10 ^3/uL (0-0.2); Eosinophils # (auto) 0 10 ^3/uL (0-0.8); White Blood Cell 9.7 10^3/uL (4.4-10.8)
[2019-12-23 06:52] LABS: Basophils % (auto) 1.3 % (0.0-2.0); Hematocrit 22.1 % (36.0-46.0); Hemoglobin 7.3 g/dL (12.2-16.2); Lymphocytes # (auto) 0.5 10 ^3/uL (0.4-5.4); Lymphocytes % (auto) 4.6 % (10.0-50.0); Mean Corpuscular Hemoglobin 30.3 pg (28.0-32.0); Mean Corpuscular Hgb Conc. 33.3 g/dL (32.0-36.0); Mean Corpuscular Volume 91.1 fL (80.0-100.0); Monocytes # (auto) 1.5 10 ^3/uL (0-1.3); Monocytes % (auto) 15.4 % (0.0-12.0); Neutrophils # (auto) 7.6 10 ^3/uL (1.6-8.6); Neutrophils % (auto) 78.7 % (37.0-80.0); Nucleated Red Blood Cells % 0.1 %; Platelet Count (auto) 82 10^3/uL (140-450); Red Blood Cells 2.42 10^6/uL (4.0-5.20); Red Cell Distribution Width 16.9 % (11.8-14.3)
[2019-12-23 07:03] LABS: BUN/Creatinine Ratio 14.2; Calcium 7.6 mg/dL (8.5-10.1); Potassium 3.4 mmol/L (3.5-5.1)
[2019-12-23 09:00] VITALS: BP 103/67
[2019-12-23] MEDS: CYANOCOBALAMIN 500 MCG TAB PO SCH (10:26)
[2019-12-23] MEDS: FOLIC ACID 1 MG TAB PO SCH (10:26)
[2019-12-23] MEDS: ASPirin 81 mg TAB PO SCH (10:27)
[2019-12-23] MEDS: CHOLECALCIFEROL (VITD3) 1,000UNIT=25mCg TAB PO SCH (10:27)
[2019-12-23] MEDS: MEROPENEM 500MG IVPB 50 ML IV SCH (10:27)
[2019-12-23] MEDS: CALCIUM CARB 500 MG CHEW TAB PO SCH ×3 (10:28→18:00)
[2019-12-23] MEDS: SODIUM CHLORIDE 0.9% 1,000 ML IV SCH (10:50)
[2019-12-23] MEDS: OFLOXACIN OTIC(EAR) 0.3 % DROP 5ML RIGHT EAR SCH (10:54)
[2019-12-23] MEDS ORDERED: HYDROcodone-ACET 5/325MG TAB PO PRN (11:15)
[2019-12-23] MEDS ORDERED: predniSONE 5 MG TAB PO ONE (11:45)
[2019-12-23] MEDS ORDERED: POTASSIUM CHLORIDE 8 MEQ TAB PO ONE (11:45)
[2019-12-23] MEDS ORDERED: METOPROLOL TARTRATE 25 MG TAB PO ONE (11:45)
[2019-12-23 12:34] VITALS: BP 110/45
[2019-12-23] MEDS ORDERED: DIGOXIN (250MCG/ML) 2 ML AMPULE IV ONE (13:30)
[2019-12-23 16:44] VITALS: BP 131/65
[2019-12-23 21:33] VITALS: BP 153/63
[2019-12-23] MEDS: MEROPENEM 1GM IVPB 100 ML IV SCH (22:16)
[2019-12-23] MEDS: METOPROLOL TARTRATE 25 MG TAB PO SCH (22:17)
[2019-12-24] VITALS (10 sets, daily range): BP systolic 126–155; BP diastolic 51–97
[2019-12-24] MEDS: SODIUM CHLORIDE 0.9% 1,000 ML IV SCH ×2 (04:51→15:47)
[2019-12-24 06:01] LABS: Hematocrit 19.1 % (36.0-46.0); Mean Corpuscular Hemoglobin 30.1 pg (28.0-32.0); Mean Corpuscular Hgb Conc. 32.4 g/dL (32.0-36.0); Mean Corpuscular Volume 92.9 fL (80.0-100.0); Platelet Count (auto) 69 10^3/uL (140-450); Red Blood Cells 2.05 10^6/uL (4.0-5.20); Red Cell Distribution Width 17.3 % (11.8-14.3); White Blood Cell 6.5 10^3/uL (4.4-10.8)
[2019-12-24 06:22] LABS: Potassium 4.1 mmol/L (3.5-5.1)
[2019-12-24 06:22] LABS: Hemoglobin 6.2 g/dL (12.2-16.2)
[2019-12-24 06:24] LABS: Basophils % (manual) 0 (0.0-2.0); Blast Cells 0; Eosinophils % (manual) 0 (0-7); Metamyelocytes % 0; Myelocytes % 0; Promyelocytes % 0; Reactive Lymphocytes 0
[2019-12-24 06:27] LABS: BUN/Creatinine Ratio 19.5; Calcium 7.3 mg/dL (8.5-10.1)
[2019-12-24 07:02] LABS: Band Neutrophils % (manual) 8; Lymphocytes % (manual) 6 (10.0-50.0); Monocytes % (manual) 5 (0-12)
[2019-12-24] MEDS: FOLIC ACID 1 MG TAB PO SCH (10:12)
[2019-12-24] MEDS: METOPROLOL TARTRATE 25 MG TAB PO SCH ×2 (10:12→22:11)
[2019-12-24] MEDS: ASPirin 81 mg TAB PO SCH (10:12)
[2019-12-24] MEDS: predniSONE 5 MG TAB PO SCH (10:12)
[2019-12-24] MEDS: CYANOCOBALAMIN 500 MCG TAB PO SCH (10:13)
[2019-12-24] MEDS: CHOLECALCIFEROL (VITD3) 1,000UNIT=25mCg TAB PO SCH (10:13)
[2019-12-24] MEDS: OFLOXACIN OTIC(EAR) 0.3 % DROP 5ML RIGHT EAR SCH (10:13)
[2019-12-24] MEDS: MEROPENEM 1GM IVPB 100 ML IV SCH ×2 (12:58→22:10)
[2019-12-24] MEDS: HYDROcodone-ACET 5/325MG TAB PO PRN (22:11)
[2019-12-25 05:00] VITALS: BP 108/63
[2019-12-25 07:05] LABS: Hemoglobin 7.3 g/dL (12.2-16.2); White Blood Cell 6.3 10^3/uL (4.4-10.8)
[2019-12-25 07:08] LABS: Hematocrit 22.6 % (36.0-46.0); Mean Corpuscular Hgb Conc. 32.3 g/dL (32.0-36.0); Mean Corpuscular Volume 92.9 fL (80.0-100.0); Platelet Count (auto) 76 10^3/uL (140-450); Red Blood Cells 2.43 10^6/uL (4.0-5.20); Red Cell Distribution Width 17.7 % (11.8-14.3)
[2019-12-25 07:33] LABS: Basophils % (manual) 0 (0.0-2.0); Blast Cells 0; Eosinophils % (manual) 0 (0-7); Metamyelocytes % 0; Myelocytes % 0; Promyelocytes % 0; Reactive Lymphocytes 0
[2019-12-25 07:35] LABS: Albumin 2.4 g/dL (3.4-5.0); Calcium 7.4 mg/dL (8.5-10.1)
[2019-12-25 07:41] LABS: BUN/Creatinine Ratio 25.3; Bilirubin, Total 0.8 mg/dL (0.2-1.0); Total Protein 6.3 g/dL (6.4-8.2)
[2019-12-25] MEDS: SODIUM CHLORIDE 0.9% 1,000 ML IV SCH (07:42)
[2019-12-25 08:09] LABS: Band Neutrophils % (manual) 6; Lymphocytes % (manual) 8 (10.0-50.0); Monocytes % (manual) 6 (0-12)
[2019-12-25] MEDS: OFLOXACIN OTIC(EAR) 0.3 % DROP 5ML RIGHT EAR SCH (10:00)
[2019-12-25] MEDS: MEROPENEM 1GM IVPB 100 ML IV SCH ×2 (10:00→18:00)
[2019-12-25] MEDS: ASPirin 81 mg TAB PO SCH (10:00)
[2019-12-25] MEDS: CYANOCOBALAMIN 500 MCG TAB PO SCH (11:33)
[2019-12-25] MEDS: FOLIC ACID 1 MG TAB PO SCH (11:33)
[2019-12-25] MEDS: METOPROLOL TARTRATE 25 MG TAB PO SCH ×2 (11:35→22:06)
[2019-12-25] MEDS: predniSONE 5 MG TAB PO SCH (11:35)
[2019-12-25] MEDS: CHOLECALCIFEROL (VITD3) 1,000UNIT=25mCg TAB PO SCH (11:36)
[2019-12-25 17:00] VITALS: BP 160/71
[2019-12-25 20:00] VITALS: BP 130/55
[2019-12-25 22:00] VITALS: BP 130/55
[2019-12-26] MEDS: SODIUM CHLORIDE 0.9% 1,000 ML IV SCH (00:05)
[2019-12-26] MEDS: MEROPENEM 1GM IVPB 100 ML IV SCH ×2 (02:01→09:54)
[2019-12-26 05:00] VITALS: BP 130/69
[2019-12-26 05:28] LABS: Platelet Count (auto) 94 10^3/uL (140-450)
[2019-12-26 05:30] LABS: Hemoglobin 8.1 g/dL (12.2-16.2); Mean Corpuscular Hemoglobin 30.5 pg (28.0-32.0); Mean Corpuscular Hgb Conc. 33.9 g/dL (32.0-36.0); Mean Corpuscular Volume 89.9 fL (80.0-100.0); Red Blood Cells 2.67 10^6/uL (4.0-5.20); Red Cell Distribution Width 16.6 % (11.8-14.3); White Blood Cell 5.6 10^3/uL (4.4-10.8)
[2019-12-26 05:34] LABS: Basophils % (manual) 0 (0.0-2.0); Blast Cells 0; Eosinophils % (manual) 0 (0-7); Metamyelocytes % 0; Promyelocytes % 0; Reactive Lymphocytes 0
[2019-12-26 05:47] LABS: Albumin 2.6 g/dL (3.4-5.0); Calcium 7.4 mg/dL (8.5-10.1); Potassium 4.1 mmol/L (3.5-5.1)
[2019-12-26 05:50] LABS: BUN/Creatinine Ratio 23.6; Bilirubin, Total 0.6 mg/dL (0.2-1.0); Total Protein 6.7 g/dL (6.4-8.2)
[2019-12-26 06:50] LABS: Band Neutrophils % (manual) 2
[2019-12-26 06:51] LABS: Lymphocytes % (manual) 10 (10.0-50.0); Monocytes % (manual) 5 (0-12); Myelocytes % 1
[2019-12-26 09:00] VITALS: BP 147/73
[2019-12-26] MEDS: METOPROLOL TARTRATE 25 MG TAB PO SCH ×2 (09:55→22:00)
[2019-12-26] MEDS: CHOLECALCIFEROL (VITD3) 1,000UNIT=25mCg TAB PO SCH (09:55)
[2019-12-26] MEDS: FOLIC ACID 1 MG TAB PO SCH (09:56)
[2019-12-26] MEDS: predniSONE 5 MG TAB PO SCH (09:56)
[2019-12-26] MEDS: CYANOCOBALAMIN 500 MCG TAB PO SCH (09:56)
[2019-12-26] MEDS: ASPirin 81 mg TAB PO SCH (09:56)
[2019-12-26] MEDS: OFLOXACIN OTIC(EAR) 0.3 % DROP 5ML RIGHT EAR SCH (09:57)
[2019-12-26] MEDS ORDERED: DIGOXIN 0.125 MG TAB PO SCH (12:00)
[2019-12-26 13:00] VITALS: BP 156/62
[2019-12-26] MEDS ORDERED: levoFLOXacin 500 MG TAB PO ONE (13:00)
[2019-12-26 17:00] VITALS: BP 126/45
[2019-12-26 22:00] VITALS: BP 109/56
[2019-12-26] MEDS: HYDROcodone-ACET 5/325MG TAB PO PRN (23:02)
[2019-12-27 05:00] VITALS: BP 136/69
[2019-12-27 09:00] VITALS: BP 132/73
[2019-12-27] MEDS ORDERED: levoFLOXacin 500 MG TAB PO SCH (10:00)
[2019-12-27] MEDS: CYANOCOBALAMIN 500 MCG TAB PO SCH (10:01)
[2019-12-27] MEDS: OFLOXACIN OTIC(EAR) 0.3 % DROP 5ML RIGHT EAR SCH (10:01)
[2019-12-27] MEDS: ASPirin 81 mg TAB PO SCH (10:02)
[2019-12-27] MEDS: FOLIC ACID 1 MG TAB PO SCH (10:02)
[2019-12-27] MEDS: CHOLECALCIFEROL (VITD3) 1,000UNIT=25mCg TAB PO SCH (10:02)
[2019-12-27] MEDS: predniSONE 5 MG TAB PO SCH (10:03)
[2019-12-27] MEDS: METOPROLOL TARTRATE 25 MG TAB PO SCH (10:03)
[2019-12-27 12:43] VITALS: BP 104/82
[2019-12-27 16:49] VITALS: BP 146/76
== END 2019-12-27 17:25 | disposition home health service (06) | DRG 811 ==
LOC: ER 14:51 → EDUNIT# 14:51 → EDBD 14:51 → TELE 14:52 → TELE-WESTW 20:36
PROVIDERS: ADMIT Hospitalist; ATTEND Internal Medicine
PROC: 30233N1 Transfusion of Nonautologous Red Blood Cells into Peripheral Vein, Percutaneous Approach (ICD-10-PCS; principal; 2019-12-24)
DX: D64.81 Anemia due to antineoplastic chemotherapy (principal); N17.0 Acute kidney failure with tubular necrosis; H70.001 Acute mastoiditis without complications, right ear; N39.0 Urinary tract infection, site not specified; I50.22 Chronic systolic (congestive) heart failure; E44.0 Moderate protein-calorie malnutrition; I13.0 Hypertensive heart and chronic kidney disease with heart failure and stage 1 through stage 4 chronic kidney disease, or unspecified chronic kidney disease; E11.52 Type 2 diabetes mellitus with diabetic peripheral angiopathy with gangrene; I48.20 Chronic atrial fibrillation, unspecified; C44.222 Squamous cell carcinoma of skin of right ear and external auricular canal; L98.493 Non-pressure chronic ulcer of skin of other sites with necrosis of muscle; R62.7 Adult failure to thrive; H60.91 Unspecified otitis externa, right ear; H60.01 Abscess of right external ear; T50.905A Adverse effect of unspecified drugs, medicaments and biological substances, initial encounter; E78.5 Hyperlipidemia, unspecified; M79.89 Other specified soft tissue disorders; I87.2 Venous insufficiency (chronic) (peripheral); I89.0 Lymphedema, not elsewhere classified; D69.6 Thrombocytopenia, unspecified; N18.9 Chronic kidney disease, unspecified; I12.9 Hypertensive chronic kidney disease with stage 1 through stage 4 chronic kidney disease, or unspecified chronic kidney disease; S01.80XA Unspecified open wound of other part of head, initial encounter; Z90.710 Acquired absence of both cervix and uterus; Z85.42 Personal history of malignant neoplasm of other parts of uterus; E66.01 Morbid (severe) obesity due to excess calories; Z92.21 Personal history of antineoplastic chemotherapy; Z92.3 Personal history of irradiation; Z87.442 Personal history of urinary calculi; Z88.0 Allergy status to penicillin; Z88.5 Allergy status to narcotic agent; Z85.828 Personal history of other malignant neoplasm of skin; E11.22 Type 2 diabetes mellitus with diabetic chronic kidney disease; B96.89 Other specified bacterial agents as the cause of diseases classified elsewhere; Z81.8 Family history of other mental and behavioral disorders; Z82.49 Family history of ischemic heart disease and other diseases of the circulatory system; I70.0 Atherosclerosis of aorta; W54.1XXA Struck by dog, initial encounter; Z68.38 Body mass index [BMI] 38.0-38.9, adult; E87.6 Hypokalemia
CPT/HCPCS: 36415; 36600; 70450; 70486; 70551; 71045; 80048; 80053; 80061; 80202; 80307; 81001; 82805; 83036; 83735; 83880; 84443; 84484; 85007; 85025; 85027; 85610; 85730; 86850; 86900; 86901; 86920; 87040; 87077; 87086; 87186; 87205; 93005; 93306; 96365; 96367; 96375; C9113; G0378; J2185; J2405; J3490

== ENCOUNTER → 2020-01-04 | Outpatient (CLI) | payer MEDICARE, OTHER ==
[~2020-01-04] MED LIST changes: +LIDOCAINE VISCOUS 2% 15ML UD ONE; +MIDAZOLAM HCL 5 MG/ML-1ML VIAL ONE; -OYST500T29 PO; -PRE5T PO; -PRED-158 PO; +SODIUM CHLORIDE LOCK 0 ML ONE; +VALS1TAB57 PO; -VALS40TA2 PO; +diphenhdrAMINE HCL 50 MG/1 ML VL ONE; +fentaNYL CITRATE 100 MCG/2 ML VL ONE
[2020-01-04 12:12] LABS: Hemoglobin 8.5 g/dL (12.2-16.2); White Blood Cell 3.1 10^3/uL (4.4-10.8)
[2020-01-04 12:16] LABS: Hematocrit 25.2 % (36.0-46.0); Mean Corpuscular Hemoglobin 30.5 pg (28.0-32.0); Mean Corpuscular Hgb Conc. 33.7 g/dL (32.0-36.0); Mean Corpuscular Volume 90.6 fL (80.0-100.0); Platelet Count (auto) 60 10^3/uL (140-450); Red Blood Cells 2.78 10^6/uL (4.0-5.20)
[2020-01-04 12:22] LABS: Band Neutrophils % (manual) 0; Basophils % (manual) 0 (0.0-2.0); Blast Cells 0; Eosinophils % (manual) 0 (0-7); Promyelocytes % 0; Reactive Lymphocytes 0
[2020-01-04 12:52] LABS: Lymphocytes % (manual) 35 (10.0-50.0); Metamyelocytes % 1; Monocytes % (manual) 2 (0-12); Myelocytes % 2
[2020-01-04 13:46] LABS: Albumin 3.5 g/dL (3.4-5.0); Calcium 8.9 mg/dL (8.5-10.1); Potassium 3.8 mmol/L (3.5-5.1)
[2020-01-04 13:50] LABS: BUN/Creatinine Ratio 16.7; Bilirubin, Total 0.8 mg/dL (0.2-1.0); Total Protein 6.8 g/dL (6.4-8.2)
== END | disposition home or self-care (01) ==
LOC: LAB 11:51
PROVIDERS: ATTEND Internal Medicine
DX: I10 Essential (primary) hypertension (principal); L98.499 Non-pressure chronic ulcer of skin of other sites with unspecified severity; L03.90 Cellulitis, unspecified; D64.9 Anemia, unspecified
CPT/HCPCS: 36415; 80053; 85007; 85027; 85652; 87205; J2250

== ENCOUNTER 2020-03-21 19:47 | Emergency (ER) | payer MEDICARE, OTHER ==
[~2020-03-21] VITALS: Ht 160 cm; Wt 79.4 kg
[~2020-03-21 19:47] MED LIST changes: -LIDOCAINE VISCOUS 2% 15ML UD ONE; -MIDAZOLAM HCL 5 MG/ML-1ML VIAL ONE; -SODIUM CHLORIDE LOCK 0 ML ONE; -diphenhdrAMINE HCL 50 MG/1 ML VL ONE; -fentaNYL CITRATE 100 MCG/2 ML VL ONE
[2020-03-21] MEDS ORDERED: SODIUM CHLORIDE 0.9% 1,000 ML IVB ONE (20:30)
[2020-03-21 23:38] LABS: INR 1.09 (0.9-1.15); Partial Thromboplastin Time 29.7 sec (23.0-31.2)
[2020-03-21 23:39] LABS: Hematocrit 26.5 % (36.0-46.0); Hemoglobin 8.7 g/dL (12.2-16.2); Mean Corpuscular Hemoglobin 29.7 pg (28.0-32.0); Mean Corpuscular Hgb Conc. 32.7 g/dL (32.0-36.0); Mean Corpuscular Volume 90.9 fL (80.0-100.0); Platelet Count (auto) 82 10^3/uL (140-450); Red Blood Cells 2.92 10^6/uL (4.0-5.20); Red Cell Distribution Width 17.8 % (11.8-14.3); White Blood Cell 5.2 10^3/uL (4.4-10.8)
[2020-03-21 23:47] LABS: Basophils % (manual) 0 (0.0-2.0); Blast Cells 0; Eosinophils % (manual) 0 (0-7); Myelocytes % 0; Promyelocytes % 0; Reactive Lymphocytes 0
[2020-03-22 00:06] LABS: Potassium 3.2 mmol/L (3.5-5.1)
[2020-03-22 00:10] LABS: Albumin 3.5 g/dL (3.4-5.0); BUN/Creatinine Ratio 13.7; Magnesium 1.8 mg/dL (1.6-2.6)
[2020-03-22 00:13] LABS: Bilirubin, Total 0.9 mg/dL (0.2-1.0); Total Protein 7.1 g/dL (6.4-8.2)
[2020-03-22 03:23] LABS: Band Neutrophils % (manual) 17; Lymphocytes % (manual) 11 (10.0-50.0); Metamyelocytes % 2; Monocytes % (manual) 7 (0-12)
[2020-03-22 08:53] VITALS: BP 123/32
== END 2020-03-22 09:25 | disposition home or self-care (01) ==
LOC: EDBD 19:47 → ER 19:47
DX: R31.0 Gross hematuria (principal); D46.9 Myelodysplastic syndrome, unspecified; D61.818 Other pancytopenia
CPT/HCPCS: 36415; 74176; 80053; 83735; 85007; 85027; 85610; 85730; 93005; 99285; J7030

== ENCOUNTER 2020-04-02 17:02 | Inpatient (IN) | payer MEDICARE, OTHER ==
[~2020-04-02] VITALS: Ht 157.5 cm; Wt 93.6 kg
[2020-04-02] MEDS ORDERED: SODIUM CHLORIDE 0.9% 500 ML IV ONE (17:45)
[2020-04-02 22:16] LABS: Hematocrit 20.2 % (36.0-46.0); Mean Corpuscular Hemoglobin 30.5 pg (28.0-32.0); Mean Corpuscular Hgb Conc. 32.7 g/dL (32.0-36.0); Mean Corpuscular Volume 93.1 fL (80.0-100.0); Red Blood Cells 2.17 10^6/uL (4.0-5.20); Red Cell Distribution Width 19.2 % (11.8-14.3); White Blood Cell 8.3 10^3/uL (4.4-10.8)
[2020-04-02 22:24] LABS: Hemoglobin 6.6 g/dL (12.2-16.2)
[2020-04-02 22:26] LABS: Urine Bacteria FEW /hpf (None Seen); Urine Blood 3+ /uL (Negative); Urine Specific Gravity 1.016 (1.001-1.035); Urine WBC 415 /hpf (0 - 5); Urine WBC Clumps PRESENT /hpf (None Seen)
[2020-04-02 22:26] LABS: Basophils % (manual) 0 (0.0-2.0); Blast Cells 0; Eosinophils % (manual) 0 (0-7); Promyelocytes % 0; Reactive Lymphocytes 0
[2020-04-02 22:33] LABS: Albumin 3.4 g/dL (3.4-5.0); BUN/Creatinine Ratio 11.3; Calcium 8.2 mg/dL (8.5-10.1); Potassium 3.6 mmol/L (3.5-5.1)
[2020-04-02 22:38] LABS: Bilirubin, Total 1.3 mg/dL (0.2-1.0); Total Protein 6.7 g/dL (6.4-8.2)
[2020-04-03 02:35] LABS: Lactic Acid w/Reflex 4.9 mmol/L (0.4-2.0)
[2020-04-03] MEDS ORDERED: cefTRIAXone 1GM/50ML D5W 50 ML IV ONE (03:15)
[2020-04-03 04:09] LABS: Band Neutrophils % (manual) 9; Lymphocytes % (manual) 15 (10.0-50.0); Metamyelocytes % 6; Monocytes % (manual) 9 (0-12); Myelocytes % 4
[2020-04-03] MEDS ORDERED: MORPHINE SULFATE INJECTION 2 MG/ML SYRG IV PRN (05:45)
[2020-04-03] MEDS ORDERED: ONDANSETRON HCL 4 MG/2 ML VIAL IV PRN (05:45)
[2020-04-03] MEDS ORDERED: NITROGLYCERIN 0.4 MG SL TAB SL PRN (05:45)
[2020-04-03] MEDS ORDERED: TEMAZEPAM 15 MG CAP PO PRN (05:45)
[2020-04-03] MEDS ORDERED: DEXTROSE (50%) 50ML SYRG IV PRN (05:45)
[2020-04-03] MEDS: InsuLIN REG 1unit/0.01ml Soln (100units/ml) SC SCH ×4 (07:00→22:00)
[2020-04-03 12:39] VITALS: BP 100/72
[2020-04-03 12:55] VITALS: BP 118/81
[2020-04-03 14:20] VITALS: BP 118/65
[2020-04-03 14:25] VITALS: BP 118/62
[2020-04-03 14:36] VITALS: BP 128/58
[2020-04-03 14:52] VITALS: BP 129/47
[2020-04-03] MEDS: ACCU-CHEK COMFORT CURVE STRIP VI SCH ×3 (14:52→22:17)
[2020-04-03] MEDS: PANTOPRAZOLE 40 MG TAB PO SCH (14:56)
[2020-04-03] MEDS: SODIUM CHLORIDE 0.9% 1,000 ML IV SCH ×2 (17:22→22:09)
[2020-04-03] MEDS: levoFLOXacin 250MG 50 ML IV SCH (17:22)
[2020-04-04 07:17] LABS: Hemoglobin 9.1 g/dL (12.2-16.2); White Blood Cell 4.1 10^3/uL (4.4-10.8)
[2020-04-04 07:22] LABS: Hematocrit 26.7 % (36.0-46.0); Mean Corpuscular Hemoglobin 30.1 pg (28.0-32.0); Mean Corpuscular Hgb Conc. 34.2 g/dL (32.0-36.0); Red Blood Cells 3.04 10^6/uL (4.0-5.20); Red Cell Distribution Width 16.2 % (11.8-14.3)
[2020-04-04 07:42] LABS: Basophils % (manual) 0 (0.0-2.0); Blast Cells 0; Eosinophils % (manual) 0 (0-7); Myelocytes % 0; Promyelocytes % 0; Reactive Lymphocytes 0
[2020-04-04] MEDS: ACCU-CHEK COMFORT CURVE STRIP VI SCH ×4 (08:17→22:22)
[2020-04-04] MEDS: InsuLIN REG 1unit/0.01ml Soln (100units/ml) SC SCH ×4 (08:19→22:00)
[2020-04-04 08:51] LABS: Albumin 2.6 g/dL (3.4-5.0); Calcium 7.6 mg/dL (8.5-10.1); Potassium 3.2 mmol/L (3.5-5.1); Total Protein 5.8 g/dL (6.4-8.2)
[2020-04-04] MEDS: SODIUM CHLORIDE 0.9% 1,000 ML IV SCH (09:25)
[2020-04-04] MEDS: levoFLOXacin 250MG 50 ML IV SCH (10:00)
[2020-04-04] MEDS: PANTOPRAZOLE 40 MG TAB PO SCH (10:00)
[2020-04-04 10:48] LABS: Band Neutrophils % (manual) 18; Lymphocytes % (manual) 10 (10.0-50.0); Metamyelocytes % 2; Monocytes % (manual) 10 (0-12)
[2020-04-05] MEDS: SODIUM CHLORIDE 0.9% 1,000 ML IV SCH ×2 (00:57→12:05)
[2020-04-05] MEDS: ACCU-CHEK COMFORT CURVE STRIP VI SCH ×4 (06:53→22:23)
[2020-04-05] MEDS: InsuLIN REG 1unit/0.01ml Soln (100units/ml) SC SCH ×4 (06:54→22:00)
[2020-04-05] MEDS: levoFLOXacin 250MG 50 ML IV SCH (10:00)
[2020-04-05] MEDS: PANTOPRAZOLE 40 MG TAB PO SCH (10:00)
[2020-04-06] MEDS: SODIUM CHLORIDE 0.9% 1,000 ML IV SCH ×2 (01:15→14:55)
[2020-04-06] MEDS: InsuLIN REG 1unit/0.01ml Soln (100units/ml) SC SCH ×4 (06:41→22:00)
[2020-04-06] MEDS: ACCU-CHEK COMFORT CURVE STRIP VI SCH ×4 (06:41→22:04)
[2020-04-06] MEDS: ACETAMINOPHEN 325 MG TAB PO PRN ×2 (08:38→18:16)
[2020-04-06] MEDS: PANTOPRAZOLE 40 MG TAB PO SCH (10:34)
[2020-04-06] MEDS: levoFLOXacin 250MG 50 ML IV SCH (10:34)
[2020-04-06 10:56] LABS: Hematocrit 26.4 % (36.0-46.0); Hemoglobin 9.2 g/dL (12.2-16.2); Mean Corpuscular Volume 87.6 fL (80.0-100.0); White Blood Cell 3.1 10^3/uL (4.4-10.8)
[2020-04-06 10:58] LABS: Mean Corpuscular Hemoglobin 30.4 pg (28.0-32.0); Mean Corpuscular Hgb Conc. 34.8 g/dL (32.0-36.0); Red Blood Cells 3.02 10^6/uL (4.0-5.20)
[2020-04-06 11:06] LABS: Basophils % (manual) 0 (0.0-2.0); Blast Cells 0; Eosinophils % (manual) 0 (0-7); Metamyelocytes % 0; Myelocytes % 0; Promyelocytes % 0; Reactive Lymphocytes 0
[2020-04-06 11:34] LABS: Band Neutrophils % (manual) 5; Lymphocytes % (manual) 12 (10.0-50.0); Monocytes % (manual) 21 (0-12)
[2020-04-07] MEDS: SODIUM CHLORIDE 0.9% 1,000 ML IV SCH ×2 (04:11→17:14)
[2020-04-07] MEDS: ACCU-CHEK COMFORT CURVE STRIP VI SCH ×4 (07:00→22:21)
[2020-04-07] MEDS: InsuLIN REG 1unit/0.01ml Soln (100units/ml) SC SCH ×4 (07:00→22:00)
[2020-04-07] MEDS: levoFLOXacin 250MG 50 ML IV SCH (10:00)
[2020-04-07] MEDS: PANTOPRAZOLE 40 MG TAB PO SCH (10:00)
[2020-04-07 17:00] VITALS: BP 141/48
[2020-04-07 22:00] VITALS: BP 142/47
[2020-04-08 05:37] VITALS: BP 141/58
[2020-04-08] MEDS: ACCU-CHEK COMFORT CURVE STRIP VI SCH ×4 (06:36→22:00)
[2020-04-08] MEDS: SODIUM CHLORIDE 0.9% 1,000 ML IV SCH ×2 (06:36→20:05)
[2020-04-08] MEDS: InsuLIN REG 1unit/0.01ml Soln (100units/ml) SC SCH ×4 (06:37→22:00)
[2020-04-08] MEDS: PANTOPRAZOLE 40 MG TAB PO SCH (08:52)
[2020-04-08] MEDS: levoFLOXacin 250MG 50 ML IV SCH (08:52)
[2020-04-08 17:00] VITALS: BP 128/55
[2020-04-08 21:42] VITALS: BP 121/53
[2020-04-09 05:30] VITALS: BP 139/84
[2020-04-09] MEDS: InsuLIN REG 1unit/0.01ml Soln (100units/ml) SC SCH ×3 (06:03→16:55)
[2020-04-09] MEDS: ACCU-CHEK COMFORT CURVE STRIP VI SCH ×3 (06:04→16:55)
[2020-04-09 08:00] VITALS: BP 136/48
[2020-04-09] MEDS: levoFLOXacin 250MG 50 ML IV SCH (08:50)
[2020-04-09] MEDS: PANTOPRAZOLE 40 MG TAB PO SCH (08:50)
[2020-04-09] MEDS: SODIUM CHLORIDE 0.9% 1,000 ML IV SCH (09:25)
[2020-04-09 12:00] VITALS: BP 151/72
[2020-04-09 15:03] VITALS: BP 136/48
== END 2020-04-09 17:59 | disposition hospice, home (50) | DRG 871 ==
LOC: EDBD 17:02 → ER 17:02 → EDUNIT# 17:02 → TELE 17:03 → TELE-CENTR 04-07 14:29
PROVIDERS: ADMIT Nurse Practitioner; ATTEND Family Medicine
PROC: 30230N1 Transfusion of Nonautologous Red Blood Cells into Peripheral Vein, Open Approach (ICD-10-PCS; principal; 2020-04-03)
DX: A41.9 Sepsis, unspecified organism (principal); G93.41 Metabolic encephalopathy; N39.0 Urinary tract infection, site not specified; I13.0 Hypertensive heart and chronic kidney disease with heart failure and stage 1 through stage 4 chronic kidney disease, or unspecified chronic kidney disease; N17.9 Acute kidney failure, unspecified; E44.0 Moderate protein-calorie malnutrition; E11.649 Type 2 diabetes mellitus with hypoglycemia without coma; D69.6 Thrombocytopenia, unspecified; Z20.822 Contact with and (suspected) exposure to COVID-19; E11.22 Type 2 diabetes mellitus with diabetic chronic kidney disease; I50.9 Heart failure, unspecified; D64.9 Anemia, unspecified; E66.9 Obesity, unspecified; N18.9 Chronic kidney disease, unspecified; Z51.5 Encounter for palliative care; Z68.37 Body mass index [BMI] 37.0-37.9, adult; Z88.0 Allergy status to penicillin; Z81.8 Family history of other mental and behavioral disorders; Z82.49 Family history of ischemic heart disease and other diseases of the circulatory system; Z85.42 Personal history of malignant neoplasm of other parts of uterus; Z87.442 Personal history of urinary calculi; Z90.710 Acquired absence of both cervix and uterus
CPT/HCPCS: 36415; 70450; 71045; 74176; 80053; 81001; 82962; 83605; 83735; 83880; 84484; 85007; 85027; 86850; 86900; 86901; 86920; 87040; 87086; 87088; 87186; G0378; J0696